=== PATIENT | male | born 1950 | race Caucasian/White ===

== ENCOUNTER 2019-01-10 19:11 | Inpatient (IN) | payer OTHER ==
[~2019-01-10] VITALS: Ht 170.2 cm; Wt 115.4 kg
[2019-01-10] MEDS ORDERED: NITROGLYCERIN SUBLINGUAL 0.4 MG BOTTLE OF 25. SL PRN (19:30)
[2019-01-10] MEDS ORDERED: IV NORMAL SALINE 1000ML BAG 1,000 ML IV SCH (19:30)
[2019-01-10 19:37] LABS: BASO # 0.1 x10^3/uL (0.0-0.2); BASO % 1 % (0-3); EOS # 0.3 x10^3/uL (0.0-0.7); EOS % 3 % (0-3); HEMATOCRIT 46.1 % (39.0-53.0); HEMOGLOBIN 15.4 g/dL (13.0-17.5); LYMPH # 2.7 x10^3/uL (1.0-4.8); LYMPH % 26 % (24-48); MEAN CORPUSCULAR HEMOGLOBIN 32 pg (25-35); MEAN CORPUSCULAR HGB CONC 34 g/dL (31-37); MEAN CORPUSCULAR VOLUME 94 fL (79-100); MONO # 0.6 x10^3/uL (0.0-1.1); MONO % 6 % (0-9); NEUT # 6.7 x10^3uL (1.8-7.7); NEUT % 65 % (31-73); PLATELET COUNT 122 x10^3/uL (140-400); RED BLOOD COUNT 4.89 x10^6/uL (4.30-5.70); RED CELL DISTRIBUTION WIDTH 13.8 % (11.5-14.5); WHITE BLOOD COUNT 10.4 x10^3/uL (4.0-11.0)
[2019-01-10 19:49] LABS: CALCIUM 8.9 mg/dL (8.5-10.1); CREATININE 1.2 mg/dL (0.7-1.3); GFR 60.6; POTASSIUM 3.9 mmol/L (3.5-5.1)
[2019-01-10 19:58] LABS: ALBUMIN 3.3 g/dL (3.4-5.0); ALBUMIN/GLOBULIN RATIO 0.9 (1.0-1.7); MAGNESIUM 1.6 mg/dL (1.8-2.4); TOTAL BILIRUBIN 0.7 mg/dL (0.2-1.0); TOTAL PROTEIN 6.9 g/dL (6.4-8.2)
[2019-01-10] MEDS ORDERED: ASPIRIN CHEWABLE 81 MG TABLET. PO ONE (20:00)
--- NOTE | 2019-01-10 20:23 | RAD ---
Indication:chest pain TECHNIQUE:Portable AP chest X-ray COMPARISON:12/27/2018 FINDINGS: Heart is normal in size. Mild patchy opacities seen in the lingula. Otherwise, lungs are clear. No pneumothorax or pleural effusion. Visualized bony thorax within normal limits. IMPRESSION: Stable mild patchy opacity in the lingula may be secondary to prominent epicardial fat pad or subsegmental atelectasis or pneumonia. Electronically signed by: Josiah Castillo DO (01/10/2019 8:20 PM) [facility]
--- NOTE | 2019-01-10 20:36 | PHYS DOC ---
Past Medical History Past Medical History: Bronchitis, High Cholesterol, Hypertension Alcohol Use: Occasionally Drug Use: None Adult General Chief Complaint Chief Complaint: CHEST PAIN HPI HPI Patient is a 68-year-old male who presents with complaint of left-sided pleuritic chest pain that started at about 3:00 this afternoon. Patient states that pain onset was while he was resting. He states that there is little bit of radiation up into the left shoulder area. He denies any nausea, vomiting or diaphoresis. Patient states the pain is worsened with deep breathing. Patient states that he does have a history of blood clots in the past and had been on blood thinners but that was about 15 years ago. Review of Systems Review of Systems Constitutional: Denies fever or chills [] Respiratory: Denies cough or shortness of breath [] Cardiovascular: No additional information not addressed in HPI [] GI: Denies abdominal pain, nausea, vomiting or diarrhea [] Musculoskeletal: Denies back pain or joint pain [] Integument: Denies rash or skin lesions [] Neurologic: Denies headache, focal weakness or sensory changes [] Endocrine: Denies polyuria or polydipsia [] All other systems were reviewed and found to be within normal limits, except as documented in this note. Current Medications Current Medications Current Medications Medications (Trade) Dose Ordered Sig/Radha Start Time Stop Time Status Last Admin Dose Admin Aspirin (Children'S Aspirin) 324 mg 1X ONCE 01/10/19 20:00 01/10/19 20:01 DC 01/10/19 19:52 324 MG Enoxaparin Sodium (Lovenox 120mg Syringe) 110 mg 1X ONCE 01/10/19 23:00 01/10/19 23:01 Info (CONTRAST GIVEN -- Rx MONITORING) 1 each PRN DAILY PRN 01/10/19 21:30 01/12/19 21:29 Iohexol (Omnipaque 350 Mg/ml) 90 ml 1X ONCE 01/10/19 21:30 01/10/19 21:31 DC 01/10/19 21:20 90 ML Nitroglycerin (Nitrostat) 0.4 mg PRN Q5MIN PRN 01/10/19 19:30 01/11/19 19:29 01/10/19 19:52 0.4 MG Sodium Chloride 1,000 ml @ 100 mls/hr Q10H 01/10/19 19:30 01/11/19 05:29 01/10/19 19:30 100 MLS/HR Allergies Allergies Allergies Coded Allergies Type Severity Reaction Last Updated Verified No Known Drug Allergies 07/03/15 No Physical Exam Physical Exam Constitutional: Well developed, well nourished, no acute distress, non-toxic appearance. [] HENT: Normocephalic, atraumatic, bilateral external ears normal, oropharynx moist, no oral exudates, nose normal. [] Eyes: PERRLA, EOMI, conjunctiva normal, no discharge. [] Neck: Normal range of motion, no tenderness, supple, no stridor. [] Cardiovascular:Heart rate regular rhythm, no murmur [] Lungs & Thorax: Bilateral breath sounds clear to auscultation [] Abdomen: Bowel sounds normal, soft, no tenderness, no masses, no pulsatile masses. [] Skin: Warm, dry, no erythema, no rash. [] Back: No tenderness, no CVA tenderness. [] Extremities: No tenderness, no cyanosis, no clubbing, ROM intact, no edema. [] Neurologic: Alert and oriented X 3, normal motor function, normal sensory function, no focal deficits noted. [] Psychologic: Affect normal, judgement normal, mood normal. [] Current Patient Data Vital Signs Vital Signs Date Time Temp Pulse Resp B/P (MAP) Pulse Ox O2 Delivery O2 Flow Rate FiO2 01/10/19 19:52 85 142/98 01/10/19 19:11 97.7 20 96 Room Air 97.7 Lab Values Laboratory Tests Test 01/10/19 19:20 White Blood Count 10.4 x10^3/uL (4.0-11.0) Red Blood Count 4.89 x10^6/uL (4.30-5.70) Hemoglobin 15.4 g/dL (13.0-17.5) Hematocrit 46.1 % (39.0-53.0) Mean Corpuscular Volume 94 fL (79-100) Mean Corpuscular Hemoglobin 32 pg (25-35) Mean Corpuscular Hemoglobin Concent 34 g/dL (31-37) Red Cell Distribution Width 13.8 % (11.5-14.5) Platelet Count 122 x10^3/uL (140-400) L Neutrophils (%) (Auto) 65 % (31-73) Lymphocytes (%) (Auto) 26 % (24-48) Monocytes (%) (Auto) 6 % (0-9) Eosinophils (%) (Auto) 3 % (0-3) Basophils (%) (Auto) 1 % (0-3) Neutrophils # (Auto) 6.7 x10^3uL (1.8-7.7) Lymphocytes # (Auto) 2.7 x10^3/uL (1.0-4.8) Monocytes # (Auto) 0.6 x10^3/uL (0.0-1.1) Eosinophils # (Auto) 0.3 x10^3/uL (0.0-0.7) Basophils # (Auto) 0.1 x10^3/uL (0.0-0.2) D-Dimer (Rekha) 2.42 ug/mlFEU (0.00-0.50) H Sodium Level 143 mmol/L (136-145) Potassium Level 3.9 mmol/L (3.5-5.1) Chloride Level 103 mmol/L (98-107) Carbon Dioxide Level 28 mmol/L (21-32) Anion Gap 12 (6-14) Blood Urea Nitrogen 13 mg/dL (8-26) Creatinine 1.2 mg/dL (0.7-1.3) Estimated GFR (Cockcroft-Gault) 60.6 BUN/Creatinine Ratio 11 (6-20) Glucose Level 101 mg/dL (70-99) H Calcium Level 8.9 mg/dL (8.5-10.1) Magnesium Level 1.6 mg/dL (1.8-2.4) L Total Bilirubin 0.7 mg/dL (0.2-1.0) Aspartate Amino Transferase (AST) 20 U/L (15-37) Alanine Aminotransferase (ALT) 40 U/L (16-63) Alkaline Phosphatase 92 U/L (46-116) Troponin I Quantitative < 0.017 ng/mL (0.000-0.055) JJ-Zau-H-Type Natriuretic Peptide 107 pg/mL (0-124) Total Protein 6.9 g/dL (6.4-8.2) Albumin 3.3 g/dL (3.4-5.0) L Albumin/Globulin Ratio 0.9 (1.0-1.7) L Lipase 111 U/L (73-393) Laboratory Tests 01/10/19 19:20 Laboratory Tests 01/10/19 19:20 EKG EKG [] Radiology/Procedures Radiology/Procedures [] Impressions: PROCEDURE: PORTABLE CHEST 1V Indication:chest pain TECHNIQUE:Portable AP chest X-ray COMPARISON:12/27/2018 FINDINGS: Heart is normal in size. Mild patchy opacities seen in the lingula. Otherwise, lungs are clear. No pneumothorax or pleural effusion. Visualized bony thorax within normal limits. IMPRESSION: Stable mild patchy opacity in the lingula may be secondary to prominent epicardial fat pad or subsegmental atelectasis or pneumonia. Electronically signed by: Josiah Castillo DO (01/10/2019 8:20 PM) [facility] PROCEDURE: CT ANGIOGRAPHY CHEST PQRS Compliance statement: One or more of the following individualized dose reduction techniques were utilized for this examination: 1. Automated exposure control. 2. Adjustment of the mA and/or kV according to patient size. 3. Use of iterative reconstruction technique. Indication:chest pain; Omni 350, 90ml-due to pt size TECHNIQUE: CT angiogram of the chest with IV contrast with multiplanar MIP reformats. COMPARISON:None FINDINGS: Diagnostic please study. There is a filling defect in the proximal segmental arteries supplying right lower lobe and left lower lobe. Heart is normal in size. No pericardial or right pleural effusion. Trace left effusion. Clear neck base. No enlarged axillary, mediastinal or hilar adenopathy. Visualized sections through the liver, spleen, gallbladder, pancreas, adrenals and kidneys within normal limits. Slightly atrophic right kidney. Central airways are patent. Mild consolidation is seen in the left lower lobe and in the lingula. No suspicious bony lesion. IMPRESSION: 1. Bilateral lower lobe segmental PE. 2. Mild consolidation in the left lower lobe may secondary to subsegmental atelectasis or pneumonia. Critical findings were identified on 01/10/2019 10:23 PM, read back and verified with Dr. Alvarez on 01/10/2019 10:[address] Josiah Castillo DO. Electronically signed by: Josiah Castilol DO (01/10/2019 10:29 PM) [facility] Course & Med Decision Making Course & Med Decision Making Pertinent Labs and Imaging studies reviewed. (See chart for details) [] Dragon Disclaimer Dragon Disclaimer This electronic medical record was generated, in whole or in part, using a voice recognition dictation system. Departure Departure Impression: Primary Impression: Pulmonary emboli Disposition: ADMITTED INPATIENT Admitting Physician: Kevin Lujan Condition: IMPROVED Referrals: TITO HODGES (PCP) Problem Qualifiers Primary Impression: Pulmonary emboli Pulmonary embolism type: unspecified Chronicity: acute Acute cor pulmonale presence: without acute cor pulmonale Qualified Codes: I26.99 - Other pulmonary embolism without acute cor pulmonale SARITA ALVAREZ Jr. DO Jan 10, 2019 20:36
[2019-01-10] MEDS ORDERED: CONTRAST GIVEN. MC PRN (21:30)
[2019-01-10] MEDS ORDERED: IOHEXOL 350 MG/ML 100 ML VIAL. IV ONE (21:30)
--- NOTE | 2019-01-10 22:32 | RAD ---
PQRS Compliance statement: One or more of the following individualized dose reduction techniques were utilized for this examination: 1. Automated exposure control. 2. Adjustment of the mA and/or kV according to patient size. 3. Use of iterative reconstruction technique. Indication:chest pain; Omni 350, 90ml-due to pt size TECHNIQUE: CT angiogram of the chest with IV contrast with multiplanar MIP reformats. COMPARISON:None FINDINGS: Diagnostic please study. There is a filling defect in the proximal segmental arteries supplying right lower lobe and left lower lobe. Heart is normal in size. No pericardial or right pleural effusion. Trace left effusion. Clear neck base. No enlarged axillary, mediastinal or hilar adenopathy. Visualized sections through the liver, spleen, gallbladder, pancreas, adrenals and kidneys within normal limits. Slightly atrophic right kidney. Central airways are patent. Mild consolidation is seen in the left lower lobe and in the lingula. No suspicious bony lesion. IMPRESSION: 1. Bilateral lower lobe segmental PE. 2. Mild consolidation in the left lower lobe may secondary to subsegmental atelectasis or pneumonia. Critical findings were identified on 01/10/2019 10:23 PM, read back and verified with Dr. Alvarez on 01/10/2019 10:[address] Josiah Castillo DO. Electronically signed by: Josiah Castillo DO (01/10/2019 10:29 PM) [facility]
[2019-01-10] MEDS ORDERED: ONDANSETRON PF 4 MG/2 ML VIAL. IV PRN (22:45)
[2019-01-10] MEDS ORDERED: MORPHINE SULFATE 4 MG/ML VIAL. IV PRN (22:45)
[2019-01-10] MEDS ORDERED: HEPARIN 25,000UTS/500ML PREMIX 500 ML IV PRN (22:45)
[2019-01-10] MEDS ORDERED: HEPARIN for IV BOLUS 10,000 UNIT/10 ML VIAL. IV ONE ×2 (23:00→23:15)
[2019-01-10] MEDS ORDERED: ANTI-COAG MONITOR BY PHARMACY. MC PRN (23:00)
[2019-01-10] MEDS: HEPARIN 25,000UTS/500ML PREMIX 500 ML IV PRN (23:05)
[2019-01-10] MEDS: ACETAMINOPHEN 325 MG TABLET. PO PRN (23:10)
[2019-01-11 02:06] VITALS: BP 148/89
--- NOTE | 2019-01-11 04:21 | NUR ---
PT ADMITTED TO ROOM 254 WITH CHEST PAIN AND PE. ASSESSMENT AND HISTORY COMPLETE. HEPARIN GTT INFUSING. PT DENIES PAIN AT THIS TIME. CALL LIGHT IN PLACE, EXPLAINED POC PT VERBALIZED UNDERSTANDING, WILL CONT TO MONITOR. PMRN
[2019-01-11 05:11] LABS: BASO # 0.1 x10^3/uL (0.0-0.2); BASO % 1 % (0-3); EOS # 0.2 x10^3/uL (0.0-0.7); EOS % 2 % (0-3); HEMOGLOBIN 14.3 g/dL (13.0-17.5); LYMPH # 2.4 x10^3/uL (1.0-4.8); LYMPH % 21 % (24-48); MEAN CORPUSCULAR HEMOGLOBIN 31 pg (25-35); MEAN CORPUSCULAR HGB CONC 33 g/dL (31-37); MEAN CORPUSCULAR VOLUME 94 fL (79-100); MONO # 0.5 x10^3/uL (0.0-1.1); MONO % 4 % (0-9); NEUT # 8.4 x10^3uL (1.8-7.7); NEUT % 73 % (31-73); PLATELET COUNT 103 x10^3/uL (140-400); RED BLOOD COUNT 4.59 x10^6/uL (4.30-5.70); RED CELL DISTRIBUTION WIDTH 13.9 % (11.5-14.5); WHITE BLOOD COUNT 11.6 x10^3/uL (4.0-11.0)
[2019-01-11 05:49] LABS: CALCIUM 8.7 mg/dL (8.5-10.1); CREATININE 1.1 mg/dL (0.7-1.3); POTASSIUM 3.7 mmol/L (3.5-5.1)
[2019-01-11 07:00] VITALS: BP 124/76
[2019-01-11] MEDS: ACETAMINOPHEN 325 MG TABLET. PO PRN ×2 (08:56→22:27)
[2019-01-11] MEDS ORDERED: MAGNESIUM SULFATE 1GM 100 ML IV ONE (09:00)
[2019-01-11] MEDS ORDERED: SILD100T PO (09:47)
[2019-01-11] MEDS ORDERED: OMEP40CA5 PO (09:47)
[2019-01-11] MEDS ORDERED: ATOR20TA58 PO (09:47)
[2019-01-11] MEDS ORDERED: AMLO5TAB10 PO (09:47)
[2019-01-11] MEDS ORDERED: ALLO300T PO (09:47)
--- NOTE | 2019-01-11 09:50 | PDOC2 ---
SD LOPEZ PNEUMATIC TUBE REPAIRER 01/11/19 0950: CARDIAC CONSULT DATE OF CONSULT Date of Consult DATE: 01/11/19 TIME: 09:44 REASON FOR CONSULT Reason for Consult: PE REFERRING PHYSICIAN Referring Physician: Dr. Alvarez SOURCE Source: Chart review, Patient HISTORY OF PRESENT ILLNESS HISTORY OF PRESENT ILLNESS This is a 68 yo male, with a history of DVT/PE, HTN, and HLP, who presented secondary to chest pain. Began around 3 pm yesterday. Located in his left chest and radiated to his left shoulder. Describes as constant stabbing pain. Worse with deep breathing. Associated with SOA. No dizziness, syncope, diaphoresis, palpitations, LE edema, or nausea/vomiting. Upon arrival, CTA notable for bilateral lower lobe segmental PE. Report having PE in [address] trip[address] LE US was reportedly notable for old DVT at that time. Was followed by pulmonology and treated with warfarin for about a year. PAST MEDICAL HISTORY Cardiovascular: HTN, Hyperlipidemia Pulmonary: Pulmonary embolus CENTRAL NERVOUS SYSTEM: Other (no pertinent hx) GI: GERD Heme/Onc: Other (DVT) Hepatobiliary: No pertinent hx Psych: No pertinent hx Musculoskeletal: Osteoarthritis Rheumatologic: Gout Infectious disease: No pertinent hx ENT: No pertinent hx Renal/: No pertinent hx Endocrine: Diabetes ("borderline") Dermatology: No pertinent hx PAST SURGICAL HISTORY Past Surgical History: Hernia Repair FAMILY HISTORY Family History: Diabetes, Heart Disease, Hypertension SOCIAL HISTORY Smoke: No ALCOHOL: rare Drugs: None Lives: with Family CURRENT MEDICATIONS CURRENT MEDICATIONS Current Medications Medications (Trade) Dose Ordered Sig/Radha Route PRN Reason Start Time Stop Time Status Last Admin Dose Admin Aspirin (Children'S Aspirin) 324 mg 1X ONCE PO 01/10/19 20:00 01/10/19 20:01 DC 01/10/19 19:52 Nitroglycerin (Nitrostat) 0.4 mg PRN Q5MIN PRN SL CP RATING > 10 01/10/19 19:30 01/11/19 19:29 01/10/19 19:52 Sodium Chloride 1,000 ml @ 100 mls/hr Q10H IV 01/10/19 19:30 01/11/19 05:29 DC 01/10/19 19:30 Iohexol (Omnipaque 350 Mg/ml) 90 ml 1X ONCE IV 01/10/19 21:30 01/10/19 21:31 DC 01/10/19 21:20 Acetaminophen (Tylenol) 650 mg PRN Q4HRS PRN PO FEVER 01/10/19 22:45 01/11/19 22:44 01/11/19 08:56 Info (Anti-Coagulation Monitoring By Pharmacy) 1 each PRN DAILY PRN MC SEE COMMENTS 01/10/19 23:00 01/11/19 02:05 Heparin Sodium (Porcine) (Heparin Sodium) 9,050 unit 1X ONCE IV 01/10/19 23:15 01/10/19 23:16 DC 01/10/19 23:06 Heparin Sodium/ Dextrose 500 ml @ 0 mls/hr CONT PRN IV SEE I/O RECORD 01/10/19 23:15 01/10/19 23:05 Magnesium Sulfate/ Dextrose 100 ml @ 100 mls/hr 1X ONCE IV 01/11/19 09:00 01/11/19 09:59 01/11/19 08:52 ALLERGIES ALLERGIES: Coded Allergies: No Known Drug Allergies (Unverified , 07/03/15) ROS Review of System 14 point ROS conducted with pertinent positives noted above in HPI. PHYSICAL EXAM General: Alert, Oriented X3, Cooperative, No acute distress HEENT: Atraumatic, Mucous membr. moist/pink Lungs: Clear to auscultation, Normal air movement Heart: Regular rate, Normal S1, Normal S2 Abdomen: Soft, No tenderness Extremities: No edema, Normal pulses Skin: No significant lesion Neuro: Normal speech, Sensation intact Psych/Mental Status: Mental status NL, Mood NL MUSCULOSKELETAL: Osteoarthritic changes both hands VITALS VITALS Vital Signs Date Time Temp Pulse Resp B/P (MAP) Pulse Ox O2 Delivery O2 Flow Rate FiO2 01/11/19 08:00 Room Air 01/11/19 07:00 97.5 86 16 124/76 (92) 97 97.5 LABS Lab: Laboratory Tests Test 01/10/19 19:20 01/11/19 04:00 01/11/19 04:50 01/11/19 05:00 White Blood Count 10.4 x10^3/uL (4.0-11.0) 11.6 x10^3/uL (4.0-11.0) Red Blood Count 4.89 x10^6/uL (4.30-5.70) 4.59 x10^6/uL (4.30-5.70) Hemoglobin 15.4 g/dL (13.0-17.5) 14.3 g/dL (13.0-17.5) Hematocrit 46.1 % (39.0-53.0) 43.0 % (39.0-53.0) Mean Corpuscular Volume 94 fL (79-100) 94 fL (79-100) Mean Corpuscular Hemoglobin 32 pg (25-35) 31 pg (25-35) Mean Corpuscular Hemoglobin Concent 34 g/dL (31-37) 33 g/dL (31-37) Red Cell Distribution Width 13.8 % (11.5-14.5) 13.9 % (11.5-14.5) Platelet Count 122 x10^3/uL (140-400) 103 x10^3/uL (140-400) Neutrophils (%) (Auto) 65 % (31-73) 73 % (31-73) Lymphocytes (%) (Auto) 26 % (24-48) 21 % (24-48) Monocytes (%) (Auto) 6 % (0-9) 4 % (0-9) Eosinophils (%) (Auto) 3 % (0-3) 2 % (0-3) Basophils (%) (Auto) 1 % (0-3) 1 % (0-3) Neutrophils # (Auto) 6.7 x10^3uL (1.8-7.7) 8.4 x10^3uL (1.8-7.7) Lymphocytes # (Auto) 2.7 x10^3/uL (1.0-4.8) 2.4 x10^3/uL (1.0-4.8) Monocytes # (Auto) 0.6 x10^3/uL (0.0-1.1) 0.5 x10^3/uL (0.0-1.1) Eosinophils # (Auto) 0.3 x10^3/uL (0.0-0.7) 0.2 x10^3/uL (0.0-0.7) Basophils # (Auto) 0.1 x10^3/uL (0.0-0.2) 0.1 x10^3/uL (0.0-0.2) D-Dimer (Rekha) 2.42 ug/mlFEU (0.00-0.50) Sodium Level 143 mmol/L (136-145) 143 mmol/L (136-145) Potassium Level 3.9 mmol/L (3.5-5.1) 3.7 mmol/L (3.5-5.1) Chloride Level 103 mmol/L (98-107) 106 mmol/L (98-107) Carbon Dioxide Level 28 mmol/L (21-32) 27 mmol/L (21-32) Anion Gap 12 (6-14) 10 (6-14) Blood Urea Nitrogen 13 mg/dL (8-26) 11 mg/dL (8-26) Creatinine 1.2 mg/dL (0.7-1.3) 1.1 mg/dL (0.7-1.3) Estimated GFR (Cockcroft-Gault) 60.6 67.0 BUN/Creatinine Ratio 11 (6-20) Glucose Level 101 mg/dL (70-99) 138 mg/dL (70-99) Calcium Level 8.9 mg/dL (8.5-10.1) 8.7 mg/dL (8.5-10.1) Magnesium Level 1.6 mg/dL (1.8-2.4) 1.7 mg/dL (1.8-2.4) Total Bilirubin 0.7 mg/dL (0.2-1.0) Aspartate Amino Transf (AST/SGOT) 20 U/L (15-37) Alanine Aminotransferase (ALT/SGPT) 40 U/L (16-63) Alkaline Phosphatase 92 U/L (46-116) Troponin I Quantitative < 0.017 ng/mL (0.000-0.055) < 0.017 ng/mL (0.000-0.055) KM-Qij-H-Type Natriuretic Peptide 107 pg/mL (0-124) Total Protein 6.9 g/dL (6.4-8.2) Albumin 3.3 g/dL (3.4-5.0) Albumin/Globulin Ratio 0.9 (1.0-1.7) Lipase 111 U/L (73-393) Heparin Anti-Xa Act, Unfractionated 0.91 IU/mL (0.30-0.70) ASSESSMENT/PLAN ASSESSMENT/PLAN 1. Chest pain, pleuritic. AMi ruled out. Secondary to acute PE 2. PE; bilateral lower lobe. On heparin gtt 3. Hypertension; controlled 4. Hyperlipidemia; statin 5. Hypomagnesemia; replaced Recommendations Anticoagulation Echocardiogram LE US to r/o DVT Resume home statin and antiHTN therapy. Follow pulm recommendations Given risk factors, consider outpatient stress test. HARITHA BLOOM MD 01/11/19 1826: CARDIAC CONSULT ASSESSMENT/PLAN ASSESSMENT/PLAN Patient seen and examined. Agree with above nurse practitioner note. 68-year-old man with recurrent PE with likely underlying hypercoagulable state. Will defer to primary and pulmonary for further evaluation Echocardiogram demonstrates minimally dilated right ventricle. He's currently denies any chest pain. We will repeat echocardiogram in 3 months and consider ischemic evaluation pending on symptoms. Supportive care. Okay to discharge from a cardiac standpoint. SD LOPEZ APRN Jan 11, 2019 09:50 HARITHA BLOOM MD Jan 11, 2019 18:26
[2019-01-11 11:00] VITALS: BP 136/80
--- NOTE | 2019-01-11 11:01 | EKG ---
[facility] [address] [place] [address] Test Date: 2019-01-10 Test Time: 19:15:17 Pat Name: ILIA HERNANDEZ Department: Room: 254 1 Gender: M Sales Correspondent: : 1950 Requested By: SARITA REINA Order Number: [id number] Reading MD: Luiz Gibson MD Measurements Intervals [place] Rate: 90 P: 51 MO: 162 QRS: 16 QRSD: 88 T: 30 QT: 364 QTc: 449 Interpretive Statements SINUS RHYTHM ATRIAL PREMATURE COMPLEX(ES) Electronically Signed On 01-11-2019 17:09:17 WINDOWS CONSULTANT by Luiz Gibson MD
[2019-01-11 11:21] LABS: CHOLESTEROL/HDL RATIO 2.7
--- NOTE | 2019-01-11 11:43 | HP ---
ADMIT DATE: 01/10/2019 CHIEF COMPLAINT: Shortness of breath and chest discomfort. HISTORY OF PRESENT ILLNESS: The patient is a pleasant 68-year-old male who has had a previous history of a pulmonary embolism 15 years ago. He presented to the ER this time with chest pain and was concerned he was having a cardiac event. He describes it as agonizing with associated shortness of breath, worse with moving. He tried taking some home meds, but that did not work. He states the pain is severe. While in the ER, we did a CAT scan showing he has bilateral pulmonary emboli. I have discussed the case with ER physician. We are admitting the patient, placed him on heparin and consulting Cardiology and Pulmonary. PAST MEDICAL HISTORY: Previous pulmonary embolism, GERD, DVT, gout, diabetes. ALLERGIES: None. FAMILY HISTORY: Diabetes. SOCIAL HISTORY: He is retired. He does not drink, smoke or take drugs. MEDICATIONS: He is on 5 including atorvastatin, Viagra, amlodipine, omeprazole, and, allopurinol. REVIEW OF SYSTEMS: GENERAL: No history of weight change, weakness or fevers. SKIN: No bruising, hair changes or rashes. EYES: No blurred, double or loss of vision. NOSE AND THROAT: No history of nosebleeds, hoarseness or sore throat. HEART: He complains of chest pain. LUNGS: Denies cough, hemoptysis, wheezing or shortness of breath. GASTROINTESTINAL: Denies changes in appetite, nausea, vomiting, diarrhea or constipation. GENITOURINARY: No history of frequency, urgency, hesitancy or nocturia. NEUROLOGIC: Denies history of numbness, tingling, tremor or weakness. PSYCHIATRIC: No history of panic, anxiety or depression. ENDOCRINE: No history of heat or cold intolerance, polyuria or polydipsia. EXTREMITIES: Denies muscle weakness, joint pain, pain on walking or stiffness. PHYSICAL EXAMINATION: VITAL SIGNS: Temperature is 97.5, pulse 80, respirations 18, blood pressure 124/76, O2 sat 97% on room air. GENERAL: He is alert, cooperative. His is present. HEART: Normal S1, S2. LUNGS: Clear to auscultation. ABDOMEN: Soft, positive bowel sounds, a little obese. EXTREMITIES: Trace edema. SKIN: No rashes. ENDOCRINE: No thyromegaly. LYMPHATICS: No cervical nodes. HEMATOPOIETIC: No bruising. PSYCHIATRIC: He is stable. LABORATORY DATA: Hematology is normal. Electrolytes are normal. Troponin is 0. CAT scan shows bilateral pulmonary emboli in the lower lobes, segmental. He also has a mild consolidation in the left lower lobe, which could be pneumonia. ASSESSMENT AND PLAN: Bilateral pulmonary emboli, recurrent. The patient is being admitted. We will consult Pulmonary and Cardiology. Start heparin drip, hope to convert to p.o. anticoagulation, home meds, frequent labs, cardiac monitoring, lipid panel, heparin protocol. Suspect he will need lifelong anticoagulation. LONG-TERM PROGNOSIS: Guarded. KATHARINA TURNER DO DR: DANIEL/devorah JOB#: [id number] / [id number]
[2019-01-11] MEDS: amLODIPine BESYLATE 5 MG TABLET PO SCH (12:11)
[2019-01-11] MEDS: HEPARIN 25,000UTS/500ML PREMIX 500 ML IV PRN (12:17)
--- NOTE | 2019-01-11 13:20 | NUR ---
SS following for discharge planning. SS reviewed pt chart. Pt is from home with spouse and currently on room air. No discharge needs noted at this time. SS will continue to follow for pending discharge needs.
--- NOTE | 2019-01-11 14:38 | PDOC ---
PULMONARY PROGRESS NOTES Vitals Vital Signs Date Time Temp Pulse Resp B/P (MAP) Pulse Ox O2 Delivery O2 Flow Rate FiO2 01/11/19 12:11 77 138/84 01/11/19 11:00 98.0 16 96 Room Air 98.0 Labs Laboratory Tests Test 01/10/19 19:20 01/11/19 04:00 01/11/19 04:50 01/11/19 05:00 White Blood Count 10.4 x10^3/uL (4.0-11.0) 11.6 x10^3/uL (4.0-11.0) Red Blood Count 4.89 x10^6/uL (4.30-5.70) 4.59 x10^6/uL (4.30-5.70) Hemoglobin 15.4 g/dL (13.0-17.5) 14.3 g/dL (13.0-17.5) Hematocrit 46.1 % (39.0-53.0) 43.0 % (39.0-53.0) Mean Corpuscular Volume 94 fL (79-100) 94 fL (79-100) Mean Corpuscular Hemoglobin 32 pg (25-35) 31 pg (25-35) Mean Corpuscular Hemoglobin Concent 34 g/dL (31-37) 33 g/dL (31-37) Red Cell Distribution Width 13.8 % (11.5-14.5) 13.9 % (11.5-14.5) Platelet Count 122 x10^3/uL (140-400) 103 x10^3/uL (140-400) Neutrophils (%) (Auto) 65 % (31-73) 73 % (31-73) Lymphocytes (%) (Auto) 26 % (24-48) 21 % (24-48) Monocytes (%) (Auto) 6 % (0-9) 4 % (0-9) Eosinophils (%) (Auto) 3 % (0-3) 2 % (0-3) Basophils (%) (Auto) 1 % (0-3) 1 % (0-3) Neutrophils # (Auto) 6.7 x10^3uL (1.8-7.7) 8.4 x10^3uL (1.8-7.7) Lymphocytes # (Auto) 2.7 x10^3/uL (1.0-4.8) 2.4 x10^3/uL (1.0-4.8) Monocytes # (Auto) 0.6 x10^3/uL (0.0-1.1) 0.5 x10^3/uL (0.0-1.1) Eosinophils # (Auto) 0.3 x10^3/uL (0.0-0.7) 0.2 x10^3/uL (0.0-0.7) Basophils # (Auto) 0.1 x10^3/uL (0.0-0.2) 0.1 x10^3/uL (0.0-0.2) D-Dimer (Rekha) 2.42 ug/mlFEU (0.00-0.50) Sodium Level 143 mmol/L (136-145) 143 mmol/L (136-145) Potassium Level 3.9 mmol/L (3.5-5.1) 3.7 mmol/L (3.5-5.1) Chloride Level 103 mmol/L (98-107) 106 mmol/L (98-107) Carbon Dioxide Level 28 mmol/L (21-32) 27 mmol/L (21-32) Anion Gap 12 (6-14) 10 (6-14) Blood Urea Nitrogen 13 mg/dL (8-26) 11 mg/dL (8-26) Creatinine 1.2 mg/dL (0.7-1.3) 1.1 mg/dL (0.7-1.3) Estimated GFR (Cockcroft-Gault) 60.6 67.0 BUN/Creatinine Ratio 11 (6-20) Glucose Level 101 mg/dL (70-99) 138 mg/dL (70-99) Calcium Level 8.9 mg/dL (8.5-10.1) 8.7 mg/dL (8.5-10.1) Magnesium Level 1.6 mg/dL (1.8-2.4) 1.7 mg/dL (1.8-2.4) Total Bilirubin 0.7 mg/dL (0.2-1.0) Aspartate Amino Transf (AST/SGOT) 20 U/L (15-37) Alanine Aminotransferase (ALT/SGPT) 40 U/L (16-63) Alkaline Phosphatase 92 U/L (46-116) Troponin I Quantitative < 0.017 ng/mL (0.000-0.055) < 0.017 ng/mL (0.000-0.055) GS-Jis-C-Type Natriuretic Peptide 107 pg/mL (0-124) Total Protein 6.9 g/dL (6.4-8.2) Albumin 3.3 g/dL (3.4-5.0) Albumin/Globulin Ratio 0.9 (1.0-1.7) Lipase 111 U/L (73-393) Heparin Anti-Xa Act, Unfractionated 0.91 IU/mL (0.30-0.70) Triglycerides Level 70 mg/dL (0-150) Cholesterol Level 109 mg/dL (0-200) LDL Cholesterol, Calculated 55 mg/dL (0-100) VLDL Cholesterol, Calculated 14 mg/dL (0-40) Non-HDL Cholesterol Calculated 69 mg/dL (0-129) HDL Cholesterol 40 mg/dL (40-60) Cholesterol/HDL Ratio 2.7 Test 01/11/19 11:55 Heparin Anti-Xa Act, Unfractionated 0.57 IU/mL (0.30-0.70) Laboratory Tests Test 01/10/19 19:20 01/11/19 04:00 01/11/19 04:50 01/11/19 05:00 White Blood Count 10.4 x10^3/uL (4.0-11.0) 11.6 x10^3/uL (4.0-11.0) Red Blood Count 4.89 x10^6/uL (4.30-5.70) 4.59 x10^6/uL (4.30-5.70) Hemoglobin 15.4 g/dL (13.0-17.5) 14.3 g/dL (13.0-17.5) Hematocrit 46.1 % (39.0-53.0) 43.0 % (39.0-53.0) Mean Corpuscular Volume 94 fL (79-100) 94 fL (79-100) Mean Corpuscular Hemoglobin 32 pg (25-35) 31 pg (25-35) Mean Corpuscular Hemoglobin Concent 34 g/dL (31-37) 33 g/dL (31-37) Red Cell Distribution Width 13.8 % (11.5-14.5) 13.9 % (11.5-14.5) Platelet Count 122 x10^3/uL (140-400) 103 x10^3/uL (140-400) Neutrophils (%) (Auto) 65 % (31-73) 73 % (31-73) Lymphocytes (%) (Auto) 26 % (24-48) 21 % (24-48) Monocytes (%) (Auto) 6 % (0-9) 4 % (0-9) Eosinophils (%) (Auto) 3 % (0-3) 2 % (0-3) Basophils (%) (Auto) 1 % (0-3) 1 % (0-3) Neutrophils # (Auto) 6.7 x10^3uL (1.8-7.7) 8.4 x10^3uL (1.8-7.7) Lymphocytes # (Auto) 2.7 x10^3/uL (1.0-4.8) 2.4 x10^3/uL (1.0-4.8) Monocytes # (Auto) 0.6 x10^3/uL (0.0-1.1) 0.5 x10^3/uL (0.0-1.1) Eosinophils # (Auto) 0.3 x10^3/uL (0.0-0.7) 0.2 x10^3/uL (0.0-0.7) Basophils # (Auto) 0.1 x10^3/uL (0.0-0.2) 0.1 x10^3/uL (0.0-0.2) D-Dimer (Rekha) 2.42 ug/mlFEU (0.00-0.50) Sodium Level 143 mmol/L (136-145) 143 mmol/L (136-145) Potassium Level 3.9 mmol/L (3.5-5.1) 3.7 mmol/L (3.5-5.1) Chloride Level 103 mmol/L (98-107) 106 mmol/L (98-107) Carbon Dioxide Level 28 mmol/L (21-32) 27 mmol/L (21-32) Anion Gap 12 (6-14) 10 (6-14) Blood Urea Nitrogen 13 mg/dL (8-26) 11 mg/dL (8-26) Creatinine 1.2 mg/dL (0.7-1.3) 1.1 mg/dL (0.7-1.3) Estimated GFR (Cockcroft-Gault) 60.6 67.0 BUN/Creatinine Ratio 11 (6-20) Glucose Level 101 mg/dL (70-99) 138 mg/dL (70-99) Calcium Level 8.9 mg/dL (8.5-10.1) 8.7 mg/dL (8.5-10.1) Magnesium Level 1.6 mg/dL (1.8-2.4) 1.7 mg/dL (1.8-2.4) Total Bilirubin 0.7 mg/dL (0.2-1.0) Aspartate Amino Transf (AST/SGOT) 20 U/L (15-37) Alanine Aminotransferase (ALT/SGPT) 40 U/L (16-63) Alkaline Phosphatase 92 U/L (46-116) Troponin I Quantitative < 0.017 ng/mL (0.000-0.055) < 0.017 ng/mL (0.000-0.055) NU-Iya-K-Type Natriuretic Peptide 107 pg/mL (0-124) Total Protein 6.9 g/dL (6.4-8.2) Albumin 3.3 g/dL (3.4-5.0) Albumin/Globulin Ratio 0.9 (1.0-1.7) Lipase 111 U/L (73-393) Heparin Anti-Xa Act, Unfractionated 0.91 IU/mL (0.30-0.70) Triglycerides Level 70 mg/dL (0-150) Cholesterol Level 109 mg/dL (0-200) LDL Cholesterol, Calculated 55 mg/dL (0-100) VLDL Cholesterol, Calculated 14 mg/dL (0-40) Non-HDL Cholesterol Calculated 69 mg/dL (0-129) HDL Cholesterol 40 mg/dL (40-60) Cholesterol/HDL Ratio 2.7 Test 01/11/19 11:55 Heparin Anti-Xa Act, Unfractionated 0.57 IU/mL (0.30-0.70) Medications Active Scripts Medications Dose Route/Sig Max Daily Dose Days Date Category Viagra (Sildenafil Citrate) 100 Mg Tablet 1 Tab PO PRN DAILY 01/11/19 Reported Atorvastatin Calcium 20 Mg Tablet 20 Mg PO HS 01/11/19 Reported Amlodipine Besylate 5 Mg Tablet 5 Mg PO DAILY 01/11/19 Reported Allopurinol 300 Mg Tablet 300 Mg PO DAILY 01/11/19 Reported Omeprazole 40 Mg Capsule.dr 40 Mg PO DAILY 01/11/19 Reported Impression . ACUTE PE WITH INFRACT PULMONARY CHEST PAIN SEC TO ABOVE CONTINUE THE SAME POSSIBLE D/C SOON ON ADVIDSON ORTIZ MD Jan 11, 2019 14:38
[2019-01-11 15:00] VITALS: BP 134/75
--- NOTE | 2019-01-11 16:24 | RAD ---
MR#: [id number] Date of Study: 01/11/2019 Ordering Physician: STEVEN WALTER, Referring Physician: YVONNE NOLAND Tech: Jodie Patterson RDMS RVT APPROVED REPORT Bilateral Lower Extremity Venous Study for DVT Patient Location: IN-PATIENT Indications Pulmonary Embolism Findings The bilateral lower extremity deep veins were evaluated for thrombus with color Doppler, spectral and grayscale images. On the right the grayscale images of the common femoral, superficial femoral and popliteal veins do n ot demonstrate any evidence of thrombus and these veins appear to be compressible. The below-knee vei ns were not well visualized but grossly appear to be compressible. Spectral imaging and color Doppler do not reveal any evidence of obstruction to flow with normal respirophasic variation above the knee . Below the knee there is spontaneous flow noted. On the left, the grayscale images of the common femoral, superficial femoral and popliteal veins do n ot demonstrate any evidence of thrombus and these veins appear to be compressible. The below-knee vei ns again were not well visualized but grossly appear to be compressible. Spectral imaging and color D oppler do not reveal any evidence of obstruction to flow with normal respirophasic variation above th e knee. The below-knee veins demonstrate spontaneous flow. Critical Notification Critical Value: No <Conclusion> Negative for DVT in the bilateral lower extremities. Technically difficult study Signed by : Luiz Gibson, Electronically Approved : 01/11/2019 16:23:46
--- NOTE | 2019-01-11 18:01 | CARD ---
MR#: [id number] Date of Study: 01/11/2019 Ordering Physician: STEVEN WALTER, Referring Physician: YVONNE NOLAND, Tech: Vandana Beth APPROVED REPORT EXAM: Two-dimensional and M-mode echocardiogram with Doppler and color Doppler. Other Information Quality : AverageHR: 81bpm Technically limited study due to body habitus. INDICATION Pulmonary Embolism RISK FACTORS Hypertension Hyperlipidemia 2D DIMENSIONS RVDd2.7 (2.9-3.5cm)Left Atrium(2D)3.8 (1.6-4.0cm) IVSd1.4 (0.7-1.1cm)Aortic Root(2D)3.1 (2.0-3.7cm) LVDd5.1 (3.9-5.9cm)LVOT Diameter2.3 (1.8-2.4cm) PWd1.4 (0.7-1.1cm)LVDs2.8 (2.5-4.0cm) FS (%) 44.7 %SV92.1 ml LVEF(%)75.7 (>50%) Aortic Valve AoV Peak Kenny.126.3cm/sAoV VTI24.6cm AO Peak GR.6.4mmHgLVOT VTI 15.82cm AO Mean GR.4mmHg Mitral Valve MV E Vmgeirjd11.3cm/sMV DECEL IIDR956et MV A Yappvpvi02.5cm/sE/A Ratio1.2 TDI Lateral E' P. V9.54cm/sMedial E' P. V6.36cm/s E/Lateral E'6.7E/Medial E'10.1 Tricuspid Valve TR P. Erysvzzk182rn/sRAP OJGDRPWC4unPu TR Peak Gr.46wiEcWJLO30bkWf Pulmonary Vein S1 Zbkutulo69.2cm/sS2 Yqhqprnq67.38cm/s D2 Xvjizaxo32.4cm/sPVa mpvqnhhp87klxg LEFT VENTRICLE The left ventricle is normal size. There is moderate concentric left ventricular hypertrophy. The lef t ventricular systolic function is normal and the ejection fraction is within normal range. The Eject ion Fraction is 50-55%. There is grossly normal LV segmental wall motion. Transmitral Doppler flow pa ttern is Grade II-pseudonormal filling dynamics. RIGHT VENTRICLE The right ventricle is borderline dilated. There is normal right ventricular wall thickness. The righ t ventricular systolic function is normal. ATRIA The left atrium size is normal. The right atrium size is normal. The interatrial septum is intact wit h no evidence for an atrial septal defect or patent foramen ovale as noted on 2-D or Doppler imaging. AORTIC VALVE The aortic valve is normal in structure and function. Doppler and Color Flow revealed no significant aortic regurgitation. There is no significant aortic valvular stenosis. MITRAL VALVE The mitral valve is normal in structure and function. There is no evidence of mitral valve prolapse. There is no mitral valve stenosis. Doppler and Color Flow revealed no mitral valve regurgitation note d. TRICUSPID VALVE The tricuspid valve is normal in structure and function. Doppler and Color Flow revealed trace tricus pid regurgitation with an estimated PAP of 30 mmHg. There is no tricuspid valve stenosis. PULMONIC VALVE The pulmonic valve is not well visualized. Doppler and Color Flow revealed no pulmonic valvular regur gitation. GREAT VESSELS The aortic root is normal in size. The IVC was not visualized. PERICARDIAL EFFUSION There is no evidence of significant pericardial effusion. Critical Notification Critical Value: No <Conclusion> The left ventricular systolic function is normal and the ejection fraction is within normal range. Th e Ejection Fraction is 50-55%. There is grossly normal LV segmental wall motion. The right ventricle is borderline dilated. Signed by : Luiz Gibson, Electronically Approved : 01/11/2019 18:00:39
[2019-01-11 18:56] VITALS: BP 140/91
[2019-01-11] MEDS ORDERED: ATORVASTATIN CALCIUM 20 MG TABLET PO SCH (21:00)
[2019-01-11 22:24] VITALS: BP 127/83
[2019-01-12 02:38] VITALS: BP 156/82
[2019-01-12] MEDS: HEPARIN 25,000UTS/500ML PREMIX 500 ML IV PRN (06:14)
[2019-01-12 06:27] LABS: BASO % 1 % (0-3); EOS # 0.3 x10^3/uL (0.0-0.7); EOS % 3 % (0-3); HEMOGLOBIN 15.9 g/dL (13.0-17.5); LYMPH # 2.6 x10^3/uL (1.0-4.8); LYMPH % 31 % (24-48); MEAN CORPUSCULAR HEMOGLOBIN 32 pg (25-35); MEAN CORPUSCULAR HGB CONC 34 g/dL (31-37); MEAN CORPUSCULAR VOLUME 95 fL (79-100); MONO # 0.5 x10^3/uL (0.0-1.1); MONO % 6 % (0-9); NEUT # 4.8 x10^3uL (1.8-7.7); NEUT % 59 % (31-73); PLATELET COUNT 117 x10^3/uL (140-400); RED BLOOD COUNT 4.96 x10^6/uL (4.30-5.70); RED CELL DISTRIBUTION WIDTH 14.2 % (11.5-14.5); WHITE BLOOD COUNT 8.2 x10^3/uL (4.0-11.0)
[2019-01-12 06:51] LABS: ALBUMIN 2.9 g/dL (3.4-5.0); ALBUMIN/GLOBULIN RATIO 0.8 (1.0-1.7); CALCIUM 9.1 mg/dL (8.5-10.1); CREATININE 1.1 mg/dL (0.7-1.3); POTASSIUM 4.1 mmol/L (3.5-5.1); TOTAL BILIRUBIN 0.8 mg/dL (0.2-1.0); TOTAL PROTEIN 6.7 g/dL (6.4-8.2)
[2019-01-12 07:00] VITALS: BP 142/87
--- NOTE | 2019-01-12 08:29 | PDOC ---
PROGRESS NOTES Chief Complaint Chief Complaint CC: SOA, chest discomfort Bilateral PE, Hx of previous PE HTN HLD GERD DVT Gout DM History of Present Illness History of Present Illness Pt is a 68 y/o male who presented to the ED with CP and SOA. Found to have bilateral PE on workup. Currently on heparin drip. Today he was seen and examined in his room. He is awake, alert and in NAD. He is currently not in any pain and feels better. He knows he will be on a blood thinner for life. He is ready to leave the hospital. DW his RN. Vitals Vitals Vital Signs Date Time Temp Pulse Resp B/P (MAP) Pulse Ox O2 Delivery O2 Flow Rate FiO2 01/12/19 07:00 97.6 77 18 142/87 (105) 93 Room Air 97.6 Physical Exam General: Alert, Oriented X3, Cooperative, No acute distress Heart: Regular rate, Normal S1, Normal S2, No murmurs Lungs: Clear, Other (no wheezing or crackles) Abdomen: Soft, No tenderness Extremities: No edema, Normal pulses Skin: No significant lesion Labs LABS Laboratory Tests Test 01/11/19 11:55 01/11/19 18:05 01/12/19 06:00 Heparin Anti-Xa Act, Unfractionated 0.57 IU/mL (0.30-0.70) 0.57 IU/mL (0.30-0.70) 0.59 IU/mL (0.30-0.70) White Blood Count 8.2 x10^3/uL (4.0-11.0) Red Blood Count 4.96 x10^6/uL (4.30-5.70) Hemoglobin 15.9 g/dL (13.0-17.5) Hematocrit 47.0 % (39.0-53.0) Mean Corpuscular Volume 95 fL (79-100) Mean Corpuscular Hemoglobin 32 pg (25-35) Mean Corpuscular Hemoglobin Concent 34 g/dL (31-37) Red Cell Distribution Width 14.2 % (11.5-14.5) Platelet Count 117 x10^3/uL (140-400) Neutrophils (%) (Auto) 59 % (31-73) Lymphocytes (%) (Auto) 31 % (24-48) Monocytes (%) (Auto) 6 % (0-9) Eosinophils (%) (Auto) 3 % (0-3) Basophils (%) (Auto) 1 % (0-3) Neutrophils # (Auto) 4.8 x10^3uL (1.8-7.7) Lymphocytes # (Auto) 2.6 x10^3/uL (1.0-4.8) Monocytes # (Auto) 0.5 x10^3/uL (0.0-1.1) Eosinophils # (Auto) 0.3 x10^3/uL (0.0-0.7) Basophils # (Auto) 0.0 x10^3/uL (0.0-0.2) Sodium Level 140 mmol/L (136-145) Potassium Level 4.1 mmol/L (3.5-5.1) Chloride Level 105 mmol/L (98-107) Carbon Dioxide Level 26 mmol/L (21-32) Anion Gap 9 (6-14) Blood Urea Nitrogen 9 mg/dL (8-26) Creatinine 1.1 mg/dL (0.7-1.3) Estimated GFR (Cockcroft-Gault) 67.0 BUN/Creatinine Ratio 8 (6-20) Glucose Level 134 mg/dL (70-99) Calcium Level 9.1 mg/dL (8.5-10.1) Total Bilirubin 0.8 mg/dL (0.2-1.0) Aspartate Amino Transf (AST/SGOT) 19 U/L (15-37) Alanine Aminotransferase (ALT/SGPT) 31 U/L (16-63) Alkaline Phosphatase 93 U/L (46-116) Total Protein 6.7 g/dL (6.4-8.2) Albumin 2.9 g/dL (3.4-5.0) Albumin/Globulin Ratio 0.8 (1.0-1.7) Review of Systems Review of Systems Gen: denies fever, chills Heart: denies CP, palpitation Lung: denies cough, SOA Abd: denies N/V/D Assessment and Plan Assessmemt and Plan Assessment: CC: SOA, chest discomfort Bilateral PE, Hx of previous PE HTN HLD GERD DVT Gout DM Plan: Heparin drip with routine lab checks Hope to change to eliquis at D/C Cardiac monitoring Follow daily labs PT/OT Home meds Appreciate subspecialist input Hope to D/C today is okay by subspecialist Comment Review of Relevant I have reviewed the following items sonal (where applicable) has been applied. Labs Laboratory Tests Test 01/10/19 19:20 01/11/19 04:00 01/11/19 04:50 01/11/19 05:00 White Blood Count 10.4 x10^3/uL (4.0-11.0) 11.6 x10^3/uL (4.0-11.0) Red Blood Count 4.89 x10^6/uL (4.30-5.70) 4.59 x10^6/uL (4.30-5.70) Hemoglobin 15.4 g/dL (13.0-17.5) 14.3 g/dL (13.0-17.5) Hematocrit 46.1 % (39.0-53.0) 43.0 % (39.0-53.0) Mean Corpuscular Volume 94 fL (79-100) 94 fL (79-100) Mean Corpuscular Hemoglobin 32 pg (25-35) 31 pg (25-35) Mean Corpuscular Hemoglobin Concent 34 g/dL (31-37) 33 g/dL (31-37) Red Cell Distribution Width 13.8 % (11.5-14.5) 13.9 % (11.5-14.5) Platelet Count 122 x10^3/uL (140-400) 103 x10^3/uL (140-400) Neutrophils (%) (Auto) 65 % (31-73) 73 % (31-73) Lymphocytes (%) (Auto) 26 % (24-48) 21 % (24-48) Monocytes (%) (Auto) 6 % (0-9) 4 % (0-9) Eosinophils (%) (Auto) 3 % (0-3) 2 % (0-3) Basophils (%) (Auto) 1 % (0-3) 1 % (0-3) Neutrophils # (Auto) 6.7 x10^3uL (1.8-7.7) 8.4 x10^3uL (1.8-7.7) Lymphocytes # (Auto) 2.7 x10^3/uL (1.0-4.8) 2.4 x10^3/uL (1.0-4.8) Monocytes # (Auto) 0.6 x10^3/uL (0.0-1.1) 0.5 x10^3/uL (0.0-1.1) Eosinophils # (Auto) 0.3 x10^3/uL (0.0-0.7) 0.2 x10^3/uL (0.0-0.7) Basophils # (Auto) 0.1 x10^3/uL (0.0-0.2) 0.1 x10^3/uL (0.0-0.2) D-Dimer (Rekha) 2.42 ug/mlFEU (0.00-0.50) Sodium Level 143 mmol/L (136-145) 143 mmol/L (136-145) Potassium Level 3.9 mmol/L (3.5-5.1) 3.7 mmol/L (3.5-5.1) Chloride Level 103 mmol/L (98-107) 106 mmol/L (98-107) Carbon Dioxide Level 28 mmol/L (21-32) 27 mmol/L (21-32) Anion Gap 12 (6-14) 10 (6-14) Blood Urea Nitrogen 13 mg/dL (8-26) 11 mg/dL (8-26) Creatinine 1.2 mg/dL (0.7-1.3) 1.1 mg/dL (0.7-1.3) Estimated GFR (Cockcroft-Gault) 60.6 67.0 BUN/Creatinine Ratio 11 (6-20) Glucose Level 101 mg/dL (70-99) 138 mg/dL (70-99) Calcium Level 8.9 mg/dL (8.5-10.1) 8.7 mg/dL (8.5-10.1) Magnesium Level 1.6 mg/dL (1.8-2.4) 1.7 mg/dL (1.8-2.4) Total Bilirubin 0.7 mg/dL (0.2-1.0) Aspartate Amino Transf (AST/SGOT) 20 U/L (15-37) Alanine Aminotransferase (ALT/SGPT) 40 U/L (16-63) Alkaline Phosphatase 92 U/L (46-116) Troponin I Quantitative < 0.017 ng/mL (0.000-0.055) < 0.017 ng/mL (0.000-0.055) AQ-Rcc-C-Type Natriuretic Peptide 107 pg/mL (0-124) Total Protein 6.9 g/dL (6.4-8.2) Albumin 3.3 g/dL (3.4-5.0) Albumin/Globulin Ratio 0.9 (1.0-1.7) Lipase 111 U/L (73-393) Heparin Anti-Xa Act, Unfractionated 0.91 IU/mL (0.30-0.70) Triglycerides Level 70 mg/dL (0-150) Cholesterol Level 109 mg/dL (0-200) LDL Cholesterol, Calculated 55 mg/dL (0-100) VLDL Cholesterol, Calculated 14 mg/dL (0-40) Non-HDL Cholesterol Calculated 69 mg/dL (0-129) HDL Cholesterol 40 mg/dL (40-60) Cholesterol/HDL Ratio 2.7 Test 01/11/19 11:55 01/11/19 18:05 01/12/19 06:00 Heparin Anti-Xa Act, Unfractionated 0.57 IU/mL (0.30-0.70) 0.57 IU/mL (0.30-0.70) 0.59 IU/mL (0.30-0.70) White Blood Count 8.2 x10^3/uL (4.0-11.0) Red Blood Count 4.96 x10^6/uL (4.30-5.70) Hemoglobin 15.9 g/dL (13.0-17.5) Hematocrit 47.0 % (39.0-53.0) Mean Corpuscular Volume 95 fL (79-100) Mean Corpuscular Hemoglobin 32 pg (25-35) Mean Corpuscular Hemoglobin Concent 34 g/dL (31-37) Red Cell Distribution Width 14.2 % (11.5-14.5) Platelet Count 117 x10^3/uL (140-400) Neutrophils (%) (Auto) 59 % (31-73) Lymphocytes (%) (Auto) 31 % (24-48) Monocytes (%) (Auto) 6 % (0-9) Eosinophils (%) (Auto) 3 % (0-3) Basophils (%) (Auto) 1 % (0-3) Neutrophils # (Auto) 4.8 x10^3uL (1.8-7.7) Lymphocytes # (Auto) 2.6 x10^3/uL (1.0-4.8) Monocytes # (Auto) 0.5 x10^3/uL (0.0-1.1) Eosinophils # (Auto) 0.3 x10^3/uL (0.0-0.7) Basophils # (Auto) 0.0 x10^3/uL (0.0-0.2) Sodium Level 140 mmol/L (136-145) Potassium Level 4.1 mmol/L (3.5-5.1) Chloride Level 105 mmol/L (98-107) Carbon Dioxide Level 26 mmol/L (21-32) Anion Gap 9 (6-14) Blood Urea Nitrogen 9 mg/dL (8-26) Creatinine 1.1 mg/dL (0.7-1.3) Estimated GFR (Cockcroft-Gault) 67.0 BUN/Creatinine Ratio 8 (6-20) Glucose Level 134 mg/dL (70-99) Calcium Level 9.1 mg/dL (8.5-10.1) Total Bilirubin 0.8 mg/dL (0.2-1.0) Aspartate Amino Transf (AST/SGOT) 19 U/L (15-37) Alanine Aminotransferase (ALT/SGPT) 31 U/L (16-63) Alkaline Phosphatase 93 U/L (46-116) Total Protein 6.7 g/dL (6.4-8.2) Albumin 2.9 g/dL (3.4-5.0) Albumin/Globulin Ratio 0.8 (1.0-1.7) Laboratory Tests Test 01/11/19 11:55 01/11/19 18:05 01/12/19 06:00 Heparin Anti-Xa Act, Unfractionated 0.57 IU/mL (0.30-0.70) 0.57 IU/mL (0.30-0.70) 0.59 IU/mL (0.30-0.70) White Blood Count 8.2 x10^3/uL (4.0-11.0) Red Blood Count 4.96 x10^6/uL (4.30-5.70) Hemoglobin 15.9 g/dL (13.0-17.5) Hematocrit 47.0 % (39.0-53.0) Mean Corpuscular Volume 95 fL (79-100) Mean Corpuscular Hemoglobin 32 pg (25-35) Mean Corpuscular Hemoglobin Concent 34 g/dL (31-37) Red Cell Distribution Width 14.2 % (11.5-14.5) Platelet Count 117 x10^3/uL (140-400) Neutrophils (%) (Auto) 59 % (31-73) Lymphocytes (%) (Auto) 31 % (24-48) Monocytes (%) (Auto) 6 % (0-9) Eosinophils (%) (Auto) 3 % (0-3) Basophils (%) (Auto) 1 % (0-3) Neutrophils # (Auto) 4.8 x10^3uL (1.8-7.7) Lymphocytes # (Auto) 2.6 x10^3/uL (1.0-4.8) Monocytes # (Auto) 0.5 x10^3/uL (0.0-1.1) Eosinophils # (Auto) 0.3 x10^3/uL (0.0-0.7) Basophils # (Auto) 0.0 x10^3/uL (0.0-0.2) Sodium Level 140 mmol/L (136-145) Potassium Level 4.1 mmol/L (3.5-5.1) Chloride Level 105 mmol/L (98-107) Carbon Dioxide Level 26 mmol/L (21-32) Anion Gap 9 (6-14) Blood Urea Nitrogen 9 mg/dL (8-26) Creatinine 1.1 mg/dL (0.7-1.3) Estimated GFR (Cockcroft-Gault) 67.0 BUN/Creatinine Ratio 8 (6-20) Glucose Level 134 mg/dL (70-99) Calcium Level 9.1 mg/dL (8.5-10.1) Total Bilirubin 0.8 mg/dL (0.2-1.0) Aspartate Amino Transf (AST/SGOT) 19 U/L (15-37) Alanine Aminotransferase (ALT/SGPT) 31 U/L (16-63) Alkaline Phosphatase 93 U/L (46-116) Total Protein 6.7 g/dL (6.4-8.2) Albumin 2.9 g/dL (3.4-5.0) Albumin/Globulin Ratio 0.8 (1.0-1.7) Medications Current Medications Aspirin (Children'S Aspirin) 324 mg 1X ONCE PO Last administered on 01/10/19at 19:52; Start 01/10/19 at 20:00; Stop 01/10/19 at 20:01; Status DC Nitroglycerin (Nitrostat) 0.4 mg PRN Q5MIN PRN SL CP RATING > 1/10 Last administered on 01/10/19at 19:52; Start 01/10/19 at 19:30; Stop 01/11/19 at 19:29 ; Status DC Sodium Chloride 1,000 ml @ 100 mls/hr Q10H IV Last administered on 01/10/19at 19:30; Start 01/10/19 at 19:30; Stop 01/11/19 at 05:29; Status DC Iohexol (Omnipaque 350 Mg/ml) 90 ml 1X ONCE IV Last administered on 01/10/19at 21:20; Start 01/10/19 at 21:30; Stop 01/10/19 at 21:31; Status DC Info (CONTRAST GIVEN -- Rx MONITORING) 1 each PRN DAILY PRN MC SEE COMMENTS; Start 01/10/19 at 21:30; Stop 01/12/19 at 21:29 Enoxaparin Sodium (Lovenox 120mg Syringe) 110 mg 1X ONCE SQ ; Start 01/10/19 at 23:00; Stop 01/10/19 at 23:00; Status DC Heparin Sodium (Porcine) (Heparin Sodium) 5,000 unit 1X ONCE IV ; Start at 23:00; Stop 01/10/19 at 23:01; Status Cancel Heparin Sodium/ Dextrose 500 ml @ 26 mls/hr CONT PRN IV SEE I/O RECORD; Start 01/10/19 at 22:45; Status Cancel Ondansetron HCl (Zofran) 4 mg PRN Q8HRS PRN IV NAUSEA/VOMITING 1ST CHOICE; Start 01/10/19 at 22:45; Stop 01/11/19 at 22:44; Status DC Morphine Sulfate (Morphine Sulfate) 4 mg PRN Q2HR PRN IV SEVERE PAIN; Start at 22:45; Stop 01/11/19 at 22:44; Status DC Acetaminophen (Tylenol) 650 mg PRN Q4HRS PRN PO FEVER Last administered on at 22:27; Start 01/10/19 at 22:45; Stop 01/11/19 at 22:44; Status DC Info (Anti-Coagulation Monitoring By Pharmacy) 1 each PRN DAILY PRN MC SEE COMMENTS Last administered on 01/11/19at 02:05; Start 01/10/19 at 23:00 Heparin Sodium (Porcine) (Heparin Sodium) 9,050 unit 1X ONCE IV Last administered on 01/10/19at 23:06; Start 01/10/19 at 23:15; Stop 01/10/19 at 23:16 ; Status DC Heparin Sodium/ Dextrose 500 ml @ 0 mls/hr CONT PRN IV SEE I/O RECORD Last administered on 01/12/19at 06:14; Start 01/10/19 at 23:15 Magnesium Sulfate/ Dextrose 100 ml @ 100 mls/hr 1X ONCE IV Last administered on 01/11/19at 08:52; Start 01/11/19 at 09:00; Stop 01/11/19 at 09:59; Status DC Amlodipine Besylate (Norvasc) 5 mg DAILY PO Last administered on 01/11/19at 12:11 ; Start 01/11/19 at 10:30 Atorvastatin Calcium (Lipitor) 20 mg HS PO Last administered on 01/11/19at 20:33 ; Start 01/11/19 at 21:00 Active Scripts Active Reported Viagra (Sildenafil Citrate) 100 Mg Tablet 1 Tab PO PRN DAILY Atorvastatin Calcium 20 Mg Tablet 20 Mg PO HS Amlodipine Besylate 5 Mg Tablet 5 Mg PO DAILY Allopurinol 300 Mg Tablet 300 Mg PO DAILY Omeprazole 40 Mg Capsule.dr 40 Mg PO DAILY Vitals/I & O Vital Sign - Last 24 Hours 01/11/19 01/11/19 01/11/19 01/11/19 11:00 12:11 15:00 18:56 Temp 98.0 98.0 97.9 98.0 98.0 97.9 Pulse 77 77 86 95 Resp 16 16 B/P (MAP) 136/80 (98) 138/84 134/75 (94) 140/91 (107) Pulse Ox 96 94 97 O2 Delivery Room Air Room Air 3/12/0101/11/19 01/12/19 01/12/19 19:31 22:24 02:38 07:00 Temp 98.0 97.7 97.6 98.0 97.7 97.6 Pulse 90 82 77 Resp 18 18 18 B/P (MAP) 127/83 (98) 156/82 (106) 142/87 (105) Pulse Ox 97 95 93 O2 Delivery Room Air Room Air Room Air Room Air Intake and Output 01/11/19 01/11/19 01/12/19 15:00 23:00 07:00 Intake Total 0 ml Balance 0 ml KATHARINA TURNER III DO Jan 12, 2019 08:29
[2019-01-12] MEDS: amLODIPine BESYLATE 5 MG TABLET PO SCH (08:46)
--- NOTE | 2019-01-12 09:25 | CONS ---
DATE OF CONSULTATION: 01/11/2019 ATTENDING PHYSICIAN: Ayana Murphy. REASON FOR CONSULTATION: The patient is seen in pulmonary consultation at the request of Dr. Murphy for bilateral PE. HISTORY OF PRESENT ILLNESS: The patient is a 68-year-old with a prior history of DVT, was last seen in my office in 2004. He was treated for DVT, which is related to immobilization. He was in a long car ride that was his first time that he had a DVT and PE, was treated and taken off Coumadin. The patient now presents with increasing left-sided chest discomfort, pleuritic in nature. He thought he was having a heart attack as a consequence, he presented to the Emergency Department. He denies any hemoptysis. No recent trauma to his legs. He has not been traveling. He denies any acute onset of shortness of breath with near syncopal episode and pleurisy. He was evaluated in the Emergency Room, a D-dimer was elevated 2.42. His white count was normal. Hemoglobin and hematocrit were noted. He underwent chest x-ray, which showed some opacity in the lingula. He subsequently underwent a CT angiogram. I reviewed the CT, there is bilateral pulmonary emboli. There is an infiltrate and mild consolidation on the left. This could be related to pulmonary infarct. PAST MEDICAL HISTORY: 1. DVT, PE secondary to travel back in 2004. The patient treated with Coumadin, then taken off Coumadin. 2. Hyperlipidemia. 3. Hypertension. 4. Obesity. PAST SURGICAL HISTORY: No recent major surgeries. SOCIAL HISTORY: Occasional use of alcohol. FAMILY HISTORY: Thrombophilia. Apparently sister has multiple factors that led to hypercoagulable state. REVIEW OF SYSTEMS: CONSTITUTIONAL: No fever or chills. EYES: No change in visual acuity. HEENT: No nasal congestion or sore throat. PULMONARY: As indicated above. CARDIOVASCULAR: As indicated above. GASTROINTESTINAL: No nausea, vomiting, diarrhea. GENITOURINARY: No dysuria or frequency. MUSCULOSKELETAL: No localized muscle aches or joint pain. SKIN: No new skin rashes. NEUROLOGIC: No headaches, diplopia or blurred vision. CURRENT MEDICATION: List was reviewed. ALLERGIES: No known drug allergies. PHYSICAL EXAMINATION: GENERAL: The patient was in no respiratory distress. VITAL SIGNS: Tachycardic, room air saturation 96%. HEENT: Eyes, the sclerae were nonicteric. NECK: Jugular venous distention was not elevated. No lymphadenopathy. CHEST: Full expansion. LUNGS: Adequate airway flow with no wheezes. CARDIOVASCULAR: Regular rate and rhythm with S1, S2, no S3. ABDOMEN: Soft, nontender, nondistended. EXTREMITIES: No clubbing, cyanosis or edema. NEUROLOGIC: The patient was awake, alert, following commands. A detailed neuro exam was not performed. LABORATORY DATA AND IMAGING STUDIES: As indicated above. IMPRESSION: 1. Acute bilateral pulmonary embolism, this is a second event in the patient's life span. This is unprovoked, will require lifetime anticoagulation. 2. Prior history of deep venous thrombosis and pulmonary embolism secondary to travel in 2004. 3. Family history of thrombophilia. 4. Hyperlipidemia. 5. Hypertension. 6. Morbid obesity. 7. Left-sided chest discomfort secondary to above. 8. Infiltrate consolidation on CT, suspect pulmonary infarct, doubt pneumonia. PLAN: 1. Ultrasound of the lower extremities pending. 2. Continue anticoagulation. 3. Possible discharge in the a.m. on Eliquis. Lifetime anticoagulation will be required. 4. Follow cardiology input. I do appreciate the privilege in sharing in the patient's care. DAVIDSON DUNN MD DR: EDUARD/devorah JOB#: [id number] / [id number]
[2019-01-12 11:00] VITALS: BP 146/73
[2019-01-12] MEDS ORDERED: APIX5TAB PO ×2 (13:39→13:40)
[2019-01-12] MEDS ORDERED: APIXABAN 5 MG TABLET. PO SCH (14:00)
--- NOTE | 2019-01-12 14:12 | NUR ---
Discharge Note: ILIA HERNANDEZ Discharge instructions and discharge home medications reviewed with Patient and a copy given. All questions have been answered and understanding verbalized.
--- NOTE | 2019-01-12 14:13 | DS ---
DATE OF DISCHARGE: 01/12/2019 ADMISSION DIAGNOSES: Bilateral pulmonary emboli and chest pain. DISCHARGE DIAGNOSES: Resolving pulmonary emboli, now on chronic anticoagulation; previous pulmonary embolism; previous deep vein thrombosis (he did not have any deep vein thromboses on this admit); gout; diabetes and gastroesophageal reflux disease. HOSPITAL COURSE: The patient is a pleasant middle-aged male, who presented with chest pain. While in the ER, we scanned his chest. He had bilateral pulmonary emboli. He was admitted. We did consult Cardiology and Pulmonary. We placed him on heparin drip. We are changing him over to Eliquis today. PHYSICAL EXAMINATION: I saw and examined him this morning. HEART: Tones were normal. LUNGS: Clear. ABDOMEN: Soft. EXTREMITIES: No edema. We plan to discharge with close outpatient followup. DISPOSITION: Home. ACTIVITY: As tolerated. DIET: Low sodium. MEDICATIONS: Please see the MRAD. TOTAL TIME: 33 minutes. PROCEDURES: None. KATHARINA TURNER DO DR: DANIEL/devorah JOB#: [id number] / [id number]
== END 2019-01-12 14:00 | disposition home or self-care (01) | DRG 176 ==
LOC: ER 19:11 → 2 SOUTH 22:37
PROVIDERS: ADMIT Family Medicine; ATTEND Family Medicine
DX: I26.99 Other pulmonary embolism without acute cor pulmonale (principal); I10 Essential (primary) hypertension; E78.00 Pure hypercholesterolemia, unspecified; K21.9 Gastro-esophageal reflux disease without esophagitis; E11.9 Type 2 diabetes mellitus without complications; M10.9 Gout, unspecified; E78.5 Hyperlipidemia, unspecified; E66.01 Morbid (severe) obesity due to excess calories; M19.90 Unspecified osteoarthritis, unspecified site; E83.42 Hypomagnesemia; Z82.49 Family history of ischemic heart disease and other diseases of the circulatory system; Z86.711 Personal history of pulmonary embolism; Z79.01 Long term (current) use of anticoagulants; Z86.718 Personal history of other venous thrombosis and embolism; Z83.3 Family history of diabetes mellitus; Z68.39 Body mass index [BMI] 39.0-39.9, adult
CPT/HCPCS: 36415; 71045; 71275; 80048; 80053; 80061; 83690; 83735; 83880; 84484; 85025; 85379; 85520; 93005; 93306; 93970; 96361; 96374; J1644; J3475; J7030; Q9967; 99285-25

== ENCOUNTER → 2019-07-22 | Outpatient (CLI) | payer OTHER ==
[~2019-07-22] MED LIST: ALLO300T PO; AMLO5TAB10 PO; APIX5TAB PO; ATOR20TA58 PO; OMEP40CA5 PO; SILD100T PO
--- NOTE | 2019-07-22 16:38 | KCIC ---
2 view study of the thoracolumbar spine. Clinical indications: Bilateral lower thoracic and lumbar pain for one year FINDINGS: There is mild compression deformity of T11 and T12 which is unchanged from CTA of the chest dated January 10, 2019. No acute compression fracture is demonstrated. No discitis or lytic process is evident. No anterolisthesis of the lumbar spine is evident. There is mild degenerative endplate spurring throughout the lumbar spine and there is mild to moderate degenerative endplate spurring of the lower thoracic spine. Bridging syndesmophytes are seen involving the lower thoracic spine. There is asymmetric ankylosis of the upper left SI joint. These findings may be seen with seronegative spondyloarthropathy. The transverse processes are intact. IMPRESSION: No acute compression fracture. Bridging syndesmophytes of the lower thoracic spine. Asymmetric ankylosis of the left SI joint. This may be seen with a seronegative spondyloarthropathy. Another possibility is diffuse idiopathic skeletal hyperostosis of the thoracic spine. Electronically signed by: Rip Funez MD (07/22/2019 4:34 PM) [facility]
== END | disposition home or self-care (01) ==
LOC: KCIC 12:08
PROVIDERS: ATTEND Family Medicine
DX: M54.6 Pain in thoracic spine (principal); M43.28 Fusion of spine, sacral and sacrococcygeal region
CPT/HCPCS: 72080

== ENCOUNTER → 2019-07-30 | Outpatient (CLI) | payer OTHER ==
--- NOTE | 2019-07-30 17:23 | KCIC ---
EXAM: Single AP view of the pelvis DATE: 07/30/2019 12:00 AM INDICATION: Low back pain, buttock pain COMPARISON: No Prior FINDINGS/ IMPRESSION: No evidence of acute fracture or dislocation. Joint spaces are preserved without significant degenerative/proliferative change. Decreased bone mineral density. Moderate colonic stool content is seen. Electronically signed by: Shadi Kaur MD (07/30/2019 5:20 PM) [facility]
== END | disposition home or self-care (01) ==
LOC: KCIC 11:47
PROVIDERS: ATTEND Internal Medicine Rheumatology
DX: M54.5 Low back pain (principal); K56.41 Fecal impaction
CPT/HCPCS: 72170

== ENCOUNTER → 2020-05-08 | Outpatient (CLI) | payer MEDICARE ==
[~2020-05-08] MED LIST changes: +OMEP40CA45 PO; -OMEP40CA5 PO
--- NOTE | 2020-05-08 08:07 | RAD ---
ABDOMEN COMPLETE History: Acid reflux. Nausea. Comparison: None. Technique: Sonographic examination of the abdomen was performed and multiple grayscale and color Doppler static images were obtained. Findings: Liver demonstrates increased echogenicity. The liver measures 17.6 cm. Portal flow is patent. Common bile duct not identified due to overlying structures and patient body habitus. Gallbladder wall is normal. No cholelithiasis or pericholecystic fluid. Visualized pancreas is not well seen due to overlying bowel gas and patient body habitus. The right kidney measures 9.9 x 4.7 x 4.2 cm. No hydronephrosis. The left kidney measures 12.2 x 5.0 x 6.9 cm. No hydronephrosis. The spleen measures 12.4 cm. Degraded evaluation due to patient body habitus. Aorta and IVC not well seen due to overlying bowel gas. IMPRESSION: 1. Degraded evaluation due to patient body habitus and overlying bowel gas. Common bile duct not identified. 2. Hepatomegaly with increased echotexture, may indicate steatosis. Electronically signed by: Cachorro Tavares DO (05/08/2020 8:05 AM) [id number]
== END ==
LOC: US 06:38
PROVIDERS: ATTEND Family Medicine
DX: R16.0 Hepatomegaly, not elsewhere classified (principal); K21.9 Gastro-esophageal reflux disease without esophagitis
CPT/HCPCS: 76700

== ENCOUNTER 2021-05-04 09:02 | Observation (INO) | payer MEDICARE ==
[~2021-05-04] VITALS: Ht 170.2 cm; Wt 122.4 kg
[~2021-05-04 09:02] MED LIST changes: +AMLO-186 PO; -AMLO5TAB10 PO; -OMEP40CA45 PO; +OMEP40CA7 PO
--- NOTE | 2021-05-04 09:26 | ED.ADGEN ---
Past Medical History Past Medical History: Bronchitis, High Cholesterol, Hypertension Additional Past Surgical Histo: L inguinal hernia, L ankle Smoking Status: Never Smoker Alcohol Use: Occasionally Drug Use: None Social History Narrative: lives with , son, and grandchild General Adult EDM: Chief Complaint: SHORTNESS OF BREATH HPI: HPI: Patient is a 71 year old male who presents to the emergency department with complaints of left-sided chest heaviness and shortness of breath that has been ongoing for the last 3 weeks. Patient denies any chest pain, headache, numbn ess, tingling, weakness, fever, body aches, fatigue, nausea, vomiting, diarrhea, or lower extremity swelling. He reports that he does become diaphoretic when he is exercising only. Patient states that he is also had some episodes where he feels dizzy when he changes positions and first gets up to ambulate. He reports a strong family history of atrial fibrillation but denies any history of A. fib. Patient states he does take Eliquis because about 3 years ago he was diagnosed with a pulmonary embolism. Patient reports that he received both doses of the maternal vaccine he completed the series in January 2021. Patient states that over the last 3 weeks he has had a productive cough with light yellow sputum produced. He currently denies any pain. Review of Systems: Review of Systems: Complete ROS is negative unless otherwise noted in HPI. Allergies: Allergies: Allergies Coded Allergies Type Severity Reaction Last Updated Verified No Known Drug Allergies 07/03/15 No Physical Exam: PE: See Above Constitutional: Well developed, well nourished, no acute distress, non-toxic appearance, obese. [] HENT: Normocephalic, atraumatic, bilateral external ears normal, nose normal. [] Eyes: PERRLA, EOMI, conjunctiva normal, no discharge. [] Neck: Normal range of motion, no stridor. [] Cardiovascular:Heart rate regular irregular rhythm, no murmur Lungs & Thorax: Respirations even and unlabored, no retractions, no respiratory distress, lungs CTA, nontender to palpation Abdomen: soft, no tenderness Skin: Warm, dry, no erythema, no rash. [] Extremities: No cyanosis, ROM intact, no edema. [] Neurologic: Alert and oriented X 3, normal motor, normal sensory, no focal deficits noted. [] Psychologic: Affect normal, judgement normal, mood normal. [] Current Patient Data: Labs: Laboratory Tests Test 05/04/21 09:26 White Blood Count 6.4 x10^3/uL (4.0-11.0) Red Blood Count 4.53 x10^6/uL (4.30-5.70) Hemoglobin 14.8 g/dL (13.0-17.5) Hematocrit 43.2 % (39.0-53.0) Mean Corpuscular Volume 95 fL (79-100) Mean Corpuscular Hemoglobin 33 pg (25-35) Mean Corpuscular Hemoglobin Concent 34 g/dL (31-37) Red Cell Distribution Width 13.7 % (11.5-14.5) Platelet Count 123 x10^3/uL (140-400) L Neutrophils (%) (Auto) 55 % (31-73) Lymphocytes (%) (Auto) 35 % (24-48) Monocytes (%) (Auto) 5 % (0-9) Eosinophils (%) (Auto) 4 % (0-3) H Basophils (%) (Auto) 1 % (0-3) Neutrophils # (Auto) 3.6 x10^3/uL (1.8-7.7) Lymphocytes # (Auto) 2.2 x10^3/uL (1.0-4.8) Monocytes # (Auto) 0.3 x10^3/uL (0.0-1.1) Eosinophils # (Auto) 0.2 x10^3/uL (0.0-0.7) Basophils # (Auto) 0.1 x10^3/uL (0.0-0.2) Sodium Level 142 mmol/L (136-145) Potassium Level 4.1 mmol/L (3.5-5.1) Chloride Level 107 mmol/L (98-107) Carbon Dioxide Level 27 mmol/L (21-32) Anion Gap 8 (6-14) Blood Urea Nitrogen 13 mg/dL (8-26) Creatinine 1.1 mg/dL (0.7-1.3) Estimated GFR (Cockcroft-Gault) 66.4 BUN/Creatinine Ratio 12 (6-20) Glucose Level 143 mg/dL (70-99) H Calcium Level 9.0 mg/dL (8.5-10.1) Magnesium Level 1.5 mg/dL (1.8-2.4) L Total Bilirubin 0.7 mg/dL (0.2-1.0) Aspartate Amino Transferase (AST) 25 U/L (15-37) Alanine Aminotransferase (ALT) 48 U/L (16-63) Alkaline Phosphatase 78 U/L (46-116) Creatine Kinase 76 U/L (39-308) Creatine Kinase MB (Mass) 1.5 ng/mL (0.0-3.6) Creatine Kinase MB Relative Index 2.0 % (0-4) Troponin I Quantitative < 0.017 ng/mL (0.000-0.055) Total Protein 6.8 g/dL (6.4-8.2) Albumin 3.3 g/dL (3.4-5.0) L Albumin/Globulin Ratio 0.9 (1.0-1.7) L Lipase 70 U/L (73-393) L Laboratory Tests 05/04/21 09:26 Laboratory Tests 05/04/21 09:26 Vital Signs: Vital Signs Date Time Temp Pulse Resp B/P (MAP) Pulse Ox O2 Delivery O2 Flow Rate FiO2 05/04/21 09:11 98.1 76 21 154/93 (113) 97 Room Air 98.1 EKG: EK-A. fib rate 76, leftward axis, low limb lead voltage, no STEMI, read by Dr. Wagner [] Heart Score: C/O Chest Pain: Yes HEART Score for Chest Pain: HEART Score for Chest Pain Response (Comments) Value History Slighlty/Non-Suspicious 0 ECG Nonspecific Repolarizatio 1 Age > 65 2 Risk Factors >3 Risk Factors or Hx CAD 2 Troponin < Normal Limit 0 Total 5 Risk Factors: Risk Factors: DM, Current or recent (<one month) smoker, HTN, HLP, family history of CAD, obesity. Risk Scores: Score 0 - 3: 2.5% MACE over next 6 weeks - Discharge Home Score 4 - 6: 20.3% MACE over next 6 weeks - Admit for Clinical Observation Score 7 - 10: 72.7% MACE over next 6 weeks - Early Invasive Strategies Radiology/Procedures: Radiology/Procedures: [] Course & Med Decision Making: Course & Med Decision Making Pertinent Labs and Imaging studies reviewed. (See chart for details) [id number]-spoke with Dr. Villa who is the admitting physician, and care was assumed following discussion of patient. Will admit patient for new onset A. fib and chest pressure as observation status Patient's vital signs stable. Patient remains afebrile, appears nontoxic, respirations even and unlabored. Patient will be admitted to the CVC floor. Patient's case and plan of care also discussed with Dr. Wagner [] Toribio Disclaimer: Toribio Disclaimer: This electronic medical record was generated, in whole or in part, using a voice recognition dictation system. Departure Departure Referrals: Sridhar SALEEM MD (PCP) LÁZARO CABALLERO APRN May 04, 2021 09:26
[2021-05-04 09:38] LABS: BASO # 0.1 x10^3/uL (0.0-0.2); BASO % 1 % (0-3); EOS # 0.2 x10^3/uL (0.0-0.7); EOS % 4 % (0-3); HEMATOCRIT 43.2 % (39.0-53.0); HEMOGLOBIN 14.8 g/dL (13.0-17.5); LYMPH # 2.2 x10^3/uL (1.0-4.8); LYMPH % 35 % (24-48); MEAN CORPUSCULAR HEMOGLOBIN 33 pg (25-35); MEAN CORPUSCULAR HGB CONC 34 g/dL (31-37); MEAN CORPUSCULAR VOLUME 95 fL (79-100); MONO # 0.3 x10^3/uL (0.0-1.1); MONO % 5 % (0-9); NEUT # 3.6 x10^3/uL (1.8-7.7); NEUT % 55 % (31-73); PLATELET COUNT 123 x10^3/uL (140-400); RED BLOOD COUNT 4.53 x10^6/uL (4.30-5.70); RED CELL DISTRIBUTION WIDTH 13.7 % (11.5-14.5); WHITE BLOOD COUNT 6.4 x10^3/uL (4.0-11.0)
[2021-05-04 09:45] LABS: CREATININE 1.1 mg/dL (0.7-1.3); GFR 66.4; POTASSIUM 4.1 mmol/L (3.5-5.1)
--- NOTE | 2021-05-04 09:49 | PDOC1 ---
History and Physical Date of Admission Date of Admission DATE: 05/04/21 TIME: 09:49 Identification/Chief Complaint Chief Complaint shortness of breath, ABNORMAL EKG , sent BY Dr Penn today, cough , chest tightness History of Present Illness History of Present Illness 71 year old male who presented to the emergency department with complaints of left-sided chest heaviness and shortness of breath for the last 3 weeks. Patient denies any chest pain, headache, numbness, tingling, weakness, fever, body aches, fatigue, nausea, vomiting, diarrhea, or lower extremity swelling. He reports that he does become diaphoretic when he is exercising only. Patient states that he is also had some episodes where he feels dizzy when he changes positions and first gets up to ambulate. He reports a strong family history of atrial fibrillation but denies any history of A. fib. Patient states he does take Eliquis because about 3 years ago he was diagnosed with a pulmonary embolism. Patient reports that he received both doses of the covid -19 vaccine he completed the series in January 2021. Patient states that over the last 3 weeks he has had a productive cough with light yellow sputum produced. He currently denies any pain. ekg with artifact EKG reviewed and is NSR 3-19 Bilateral pulmonary emboli Past Medical History Past Medical History Past Medical History Past Medical History: Bronchitis, High Cholesterol, Hypertension Additional Past Surgical Histo: L inguinal hernia, L ankle Smoking Status: Never Smoker Alcohol Use: Occasionally Drug Use: None Social History Narrative: lives with , son, and grandchild fhx obesity Cardiovascular: HTN, Hyperlipidemia Pulmonary: Pulmonary embolus CENTRAL NERVOUS SYSTEM: Other GI: GERD Heme/Onc: Other Hepatobiliary: No pertinent hx Psych: No pertinent hx Musculoskeletal: Osteoarthritis Rheumatologic: Gout Infectious disease: No pertinent hx Renal/: No pertinent hx Endocrine: Diabetes Past Surgical History Past Surgical History: Hernia Repair Family History Family History: Diabetes, Heart Disease, Hypertension Social History Smoke: No ALCOHOL: rare Drugs: None Current Medications Current Medications Active Scripts Active Reported Eliquis (Apixaban) 5 Mg Tablet 5 Mg PO BID Eliquis (Apixaban) 5 Mg Tablet 10 Mg PO BID 7 Days Viagra (Sildenafil Citrate) 100 Mg Tablet 1 Tab PO PRN DAILY Atorvastatin Calcium 20 Mg Tablet 20 Mg PO HS Amlodipine Besylate 5 Mg Tablet 5 Mg PO DAILY Allopurinol 300 Mg Tablet 300 Mg PO DAILY Omeprazole 40 Mg Capsule.dr 40 Mg PO DAILY Allergies Allergies: Coded Allergies: No Known Drug Allergies (Unverified , 07/03/15) ROS General: No: Chills, Night Sweats, Fatigue, Malaise, Appetite, Other PSYCHOLOGICAL ROS: No: Anxiety, Behavioral Disorder, Concentration difficultie, Decreased libido, Depression, Disorientation, Hallucinations, Hostility, Irritablity, Memory difficulties, Mood Swings, Obsessive thoughts, Physical abuse, Sexual abuse, Sleep disturbances, Suicidal ideation, Other Eyes: No Blurry vision, No Decreased vision, No Double vision, No Dry eyes, No Excessive tearing, No Eye Pain, No Itchy Eyes, No Loss of vision, No Photophobia, No Scotomata, No Uses contacts, No Uses glasses, No Other HEENT: No: Heacaches, Visual Changes, Hearing change, Nasal congestion, Nasal discharge, Oral lesions, Sinus pain, Sore Throat, Epistaxis, Sneezing, Snoring, Tinnitus, Vertigo, Vocal changes, Other ALLERGY AND IMMUNOLOGY: No: Hives, Insect Bite Sensitivity, Itchy/Watery Eyes, Nasal Congestion, Post Nasal Drip, Seasonal Allergies, Other Hematological and Lymphatic: YES: Blood Clots; No: Bleeding Problems, Blood Transfusions, Brusing, Night Sweats, Pallor, Swollen Lymph Nodes, Other ENDOCRINE: No: Breast Changes, Galactorrhea, Hair Pattern Changes, Hot Flashes, Malaise/lethargy, Mood Swings, Palpitations, Polydipsia/polyuria, Skin Changes, Temperature Intolerance, Unexpected Weight Changes, Other Breast: No New/Changing Breast Lumps, No Nipple changes, No Nipple discharge, N o Other Respiratory: YES: Cough, Shortness of breath Cardiovascular: yes Palpitations; No Chest Pain, No Orthopnea, No Paroxysmal Noc. Dyspnea, No Edema, No Lt Headedness, No Other Gastrointestinal: No Nausea, No Vomiting, No Abdominal Pain, No Diarrhea, No Constipation, No Melena, No Hematochezia, No Other Genitourinary: No Dysuria, No Frequency, No Incontinence, No Hematuria, No Retention, No Discharge, No Urgency, No Pain, No Flank Pain, No Other, No , No , No , No , No , No , No Musculoskeletal: No Gait Disturbance, No Joint Pain, No Joint Stiffness, No Joint Swelling, No Muscle Pain, No Muscular Weakness, No Pain In:, No Swelling In:, No Other Neurological: No Behavorial Changes, No Bowel/Bladder ControlChng, No Confusion, No Dizziness, No Gait Disturbance, No Headaches, No Impaired Coord/balance, No Memory Loss, No Numbness/Tingling, No Seizures, No Speech Problems, No Tremors, No Visual Changes, No Weakness, No Other Skin: No Dry Skin, No Eczema, No Hair Changes, No Lumps, No Mole Changes, No Mottling, No Nail Changes, No Pruritus, No Rash, No Skin Lesion Changes, No Other, No Acne Physical Exam Physical Exam See Above Constitutional: Well developed, well nourished, no acute distress, non-toxic appearance, obese. [] HENT: Normocephalic, atraumatic, bilateral external ears normal, nose normal. [] Eyes: PERRLA, EOMI, conjunctiva normal, no discharge. [] Neck: Normal range of motion, no stridor. [] Cardiovascular:Heart rate regular irregular rhythm, no murmur Lungs & Thorax: Respirations even and unlabored, no retractions, no respiratory distress, lungs CTA, nontender to palpation Abdomen: soft, no tenderness Skin: Warm, dry, no erythema, no rash. [] Extremities: No cyanosis, ROM intact, no edema. [] Neurologic: Alert and oriented X 3, normal motor, normal sensory, no focal deficits noted. [] Psychologic: Affect normal, judgement normal, mood normal. [] General: Alert, Oriented X3, Cooperative, No acute distress HEENT: Atraumatic, EOMI, Mucous membr. moist/pink Lungs: Clear to auscultation, Normal air movement Heart: RRR, no gallops, no murmurs Breasts: Not examined Abdomen: Normal bowel sounds, Soft, Other (obese) Rectal Exam: not examined Extremities: No cyanosis Neuro: Normal speech, Strength at 5/5 X4 ext, Sensation intact, Cranial nerves 3-12 NL Psych/Mental Status: Mental status NL, Mood NL Vitals Vitals Vital Signs Date Time Temp Pulse Resp B/P (MAP) Pulse Ox O2 Delivery O2 Flow Rate FiO2 05/04/21 09:11 98.1 76 21 154/93 (113) 97 Room Air 98.1 Labs Labs Laboratory Tests Test 05/04/21 09:26 White Blood Count 6.4 x10^3/uL (4.0-11.0) Red Blood Count 4.53 x10^6/uL (4.30-5.70) Hemoglobin 14.8 g/dL (13.0-17.5) Hematocrit 43.2 % (39.0-53.0) Mean Corpuscular Volume 95 fL (79-100) Mean Corpuscular Hemoglobin 33 pg (25-35) Mean Corpuscular Hemoglobin Concent 34 g/dL (31-37) Red Cell Distribution Width 13.7 % (11.5-14.5) Platelet Count 123 x10^3/uL (140-400) Neutrophils (%) (Auto) 55 % (31-73) Lymphocytes (%) (Auto) 35 % (24-48) Monocytes (%) (Auto) 5 % (0-9) Eosinophils (%) (Auto) 4 % (0-3) Basophils (%) (Auto) 1 % (0-3) Neutrophils # (Auto) 3.6 x10^3/uL (1.8-7.7) Lymphocytes # (Auto) 2.2 x10^3/uL (1.0-4.8) Monocytes # (Auto) 0.3 x10^3/uL (0.0-1.1) Eosinophils # (Auto) 0.2 x10^3/uL (0.0-0.7) Basophils # (Auto) 0.1 x10^3/uL (0.0-0.2) Sodium Level 142 mmol/L (136-145) Potassium Level 4.1 mmol/L (3.5-5.1) Chloride Level 107 mmol/L (98-107) Carbon Dioxide Level 27 mmol/L (21-32) Anion Gap 8 (6-14) Blood Urea Nitrogen 13 mg/dL (8-26) Creatinine 1.1 mg/dL (0.7-1.3) Estimated GFR (Cockcroft-Gault) 66.4 BUN/Creatinine Ratio 12 (6-20) Glucose Level 143 mg/dL (70-99) Calcium Level 9.0 mg/dL (8.5-10.1) Laboratory Tests Test 05/04/21 09:26 White Blood Count 6.4 x10^3/uL (4.0-11.0) Red Blood Count 4.53 x10^6/uL (4.30-5.70) Hemoglobin 14.8 g/dL (13.0-17.5) Hematocrit 43.2 % (39.0-53.0) Mean Corpuscular Volume 95 fL (79-100) Mean Corpuscular Hemoglobin 33 pg (25-35) Mean Corpuscular Hemoglobin Concent 34 g/dL (31-37) Red Cell Distribution Width 13.7 % (11.5-14.5) Platelet Count 123 x10^3/uL (140-400) Neutrophils (%) (Auto) 55 % (31-73) Lymphocytes (%) (Auto) 35 % (24-48) Monocytes (%) (Auto) 5 % (0-9) Eosinophils (%) (Auto) 4 % (0-3) Basophils (%) (Auto) 1 % (0-3) Neutrophils # (Auto) 3.6 x10^3/uL (1.8-7.7) Lymphocytes # (Auto) 2.2 x10^3/uL (1.0-4.8) Monocytes # (Auto) 0.3 x10^3/uL (0.0-1.1) Eosinophils # (Auto) 0.2 x10^3/uL (0.0-0.7) Basophils # (Auto) 0.1 x10^3/uL (0.0-0.2) Sodium Level 142 mmol/L (136-145) Potassium Level 4.1 mmol/L (3.5-5.1) Chloride Level 107 mmol/L (98-107) Carbon Dioxide Level 27 mmol/L (21-32) Anion Gap 8 (6-14) Blood Urea Nitrogen 13 mg/dL (8-26) Creatinine 1.1 mg/dL (0.7-1.3) Estimated GFR (Cockcroft-Gault) 66.4 BUN/Creatinine Ratio 12 (6-20) Glucose Level 143 mg/dL (70-99) Calcium Level 9.0 mg/dL (8.5-10.1) Images Images INDICATION: Reason: chest pain / Spl. Instructions: / History: COMPARISON: January 10, 2019 FINDINGS: Single view of chest obtained. Enlarged cardiomediastinal silhouette. No focal airspace consolidation. Degenerative changes the spine. There is a density projecting over the mediastinum. IMPRESSION: * Enlarged cardiomediastinal silhouette. * Additionally there is a density projecting over the cardiac silhouette. Causes such as hiatal hernia are within the differential. Electronically signed by: Sadia Earl MD (05/04/2021 9:45 AM) [id number] DICTATED and SIGNED BY: SADIA EARL MD DATE: 05/04/21 [id number] 0 Tricuspid Valve TR P. Velocity 261cm/s RAP ESTIMATE 3mmHg TR Peak Gr. 27mmHg RVSP 30mmHg Pulmonary Vein S1 Velocity 61.2cm/s S2 Velocity 37.38cm/s D2 Velocity 37.4cm/s PVa duration 97msec LEFT VENTRICLE The left ventricle is normal size. There is moderate concentric left ventricular hypertrophy. The left ventricular systolic function is normal and the ejection fraction is within normal range. The Ejection Fraction is 50-55%. There is grossly normal LV segmental wall motion. Transmitral Doppler flow pattern is Grade II-pseudonormal filling dynamics. RIGHT VENTRICLE The right ventricle is borderline dilated. There is normal right ventricular wall thickness. The right ventricular systolic function is normal. ATRIA The left atrium size is normal. The right atrium size is normal. The interatrial septum is intact with no evidence for an atrial septal defect or patent foramen ovale as noted on 2-D or Doppler imaging. AORTIC VALVE The aortic valve is normal in structure and function. Doppler and Color Flow revealed no significant aortic regurgitation. There is no significant aortic valvular stenosis. MITRAL VALVE The mitral valve is normal in structure and function. There is no evidence of mitral valve prolapse. There is no mitral valve stenosis. Doppler and Color Flow revealed no mitral valve regurgitation noted. TRICUSPID VALVE The tricuspid valve is normal in structure and function. Doppler and Color Flow revealed trace tricuspid regurgitation with an estimated PAP of 30 mmHg. There is no tricuspid valve stenosis. PULMONIC VALVE The pulmonic valve is not well visualized. Doppler and Color Flow revealed no pulmonic valvular regurgitation. GREAT VESSELS The aortic root is normal in size. The IVC was not visualized. PERICARDIAL EFFUSION There is no evidence of significant pericardial effusion. Critical Notification Critical Value: No <Conclusion> The left ventricular systolic function is normal and the ejection fraction is within normal range. The Ejection Fraction is 50-55%. There is grossly normal LV segmental wall motion. The right ventricle is borderline dilated. Signed by : Haritha Gibson, Electronically Approved : 01/11/2019 18:00:39 DICTATED and SIGNED BY: HARITHA GIBSON MD DATE: 01/11/19 1800 VTE Prophylaxis Ordered VTE Prophylaxis Devices: Yes VTE Pharmacological Prophylaxi: Yes Assessment/Plan Assessment/Plan impression Chest discomfort, tightness Morbid obesity Bilateral pulmonary emboli 3-19 hyperlipidemia GERD COUGH with bronchitis plan ADMIT Consult cardiology trend troponin i tsh home meds po doxy 100mg po bid cont eliquis 5 mg po bid duonebs qid D/W ER Justifications for Admission Other Justification YVONNE NOLAND MD May 04, 2021 09:49
[2021-05-04 09:51] LABS: ALBUMIN 3.3 g/dL (3.4-5.0); ALBUMIN/GLOBULIN RATIO 0.9 (1.0-1.7); MAGNESIUM 1.5 mg/dL (1.8-2.4); TOTAL BILIRUBIN 0.7 mg/dL (0.2-1.0); TOTAL PROTEIN 6.8 g/dL (6.4-8.2)
[2021-05-04] MEDS ORDERED: MAGNESIUM SULFATE 2GM 50 ML IV ONE (13:00)
--- NOTE | 2021-05-04 13:03 | PDOC2 ---
JOHN,SDSUBHA GARCIA 05/04/21 1303: CARDIAC CONSULT DATE OF CONSULT Date of Consult DATE: 05/04/21 TIME: 12:53 REASON FOR CONSULT Reason for Consult: new onset AFIB REFERRING PHYSICIAN Referring Physician: John Anderson APRN SOURCE Source: Chart review, Patient HISTORY OF PRESENT ILLNESS HISTORY OF PRESENT ILLNESS This is a 71 yo male who presented secondary to chest pain, heaviness. Patient reports experiencing heaviness/pressure in his left chest and shortness of breath for the last 3 weeks. Worse with exertion. Associated with fatigue. Has experienced some dizziness over the last couple of days. Initially though symptoms were due to the heat, but symptoms progressed with lower temperatures so he made an appointment with primary care provided for evaluation. EKG with concerns for AFIB. Patient was referred to the ED for further evaluation and treatment. He denies any nausea/vomiting or diaphoresis. No recent fevers or illness. Does have a history of PE and is on chronic OAC with Eliquis. Reports compliance with therapy. PAST MEDICAL HISTORY Past Medical History Cardiovascular: HTN, Hyperlipidemia Pulmonary: Pulmonary embolus CENTRAL NERVOUS SYSTEM: Other (no pertinent hx) GI: GERD Heme/Onc: Other (DVT) Hepatobiliary: No pertinent hx Psych: No pertinent hx Musculoskeletal: Osteoarthritis Rheumatologic: Gout Infectious disease: No pertinent hx ENT: No pertinent hx Renal/: No pertinent hx Endocrine: Diabetes ("borderline") Dermatology: No pertinent hx PAST SURGICAL HISTORY Past Surgical History: Hernia Repair FAMILY HISTORY Family History Diabetes, Heart Disease, Hypertension SOCIAL HISTORY Social History Smoke: No ALCOHOL: rare Drugs: None Lives: with Family ALLERGIES ALLERGIES: Coded Allergies: No Known Drug Allergies (Unverified , 07/03/15) ROS Review of System 14 point ROS conducted with pertinent positives noted in HPI PHYSICAL EXAM PHYSICAL EXAM General: Alert, Oriented X3, Cooperative, No acute distress HEENT: Atraumatic, Mucous membr. moist/pink Lungs: diminished bases Heart: Regular rate, Normal S1, Normal S2 Abdomen: Soft, No tenderness Extremities: No edema, Normal pulses Skin: No significant lesion Neuro: Normal speech, Sensation intact Psych/Mental Status: Mental status NL, Mood NL MUSCULOSKELETAL: Osteoarthritic changes both hands VITALS/I&O VITALS/I&O: Vital Signs Date Time Temp Pulse Resp B/P (MAP) Pulse Ox O2 Delivery O2 Flow Rate FiO2 05/04/21 09:11 98.1 76 21 154/93 (113) 97 Room Air 98.1 LABS Lab: Laboratory Tests Test 05/04/21 09:26 05/04/21 11:30 White Blood Count 6.4 x10^3/uL (4.0-11.0) Red Blood Count 4.53 x10^6/uL (4.30-5.70) Hemoglobin 14.8 g/dL (13.0-17.5) Hematocrit 43.2 % (39.0-53.0) Mean Corpuscular Volume 95 fL (79-100) Mean Corpuscular Hemoglobin 33 pg (25-35) Mean Corpuscular Hemoglobin Concent 34 g/dL (31-37) Red Cell Distribution Width 13.7 % (11.5-14.5) Platelet Count 123 x10^3/uL (140-400) L Neutrophils (%) (Auto) 55 % (31-73) Lymphocytes (%) (Auto) 35 % (24-48) Monocytes (%) (Auto) 5 % (0-9) Eosinophils (%) (Auto) 4 % (0-3) H Basophils (%) (Auto) 1 % (0-3) Neutrophils # (Auto) 3.6 x10^3/uL (1.8-7.7) Lymphocytes # (Auto) 2.2 x10^3/uL (1.0-4.8) Monocytes # (Auto) 0.3 x10^3/uL (0.0-1.1) Eosinophils # (Auto) 0.2 x10^3/uL (0.0-0.7) Basophils # (Auto) 0.1 x10^3/uL (0.0-0.2) Sodium Level 142 mmol/L (136-145) Potassium Level 4.1 mmol/L (3.5-5.1) Chloride Level 107 mmol/L (98-107) Carbon Dioxide Level 27 mmol/L (21-32) Anion Gap 8 (6-14) Blood Urea Nitrogen 13 mg/dL (8-26) Creatinine 1.1 mg/dL (0.7-1.3) Estimated GFR (Cockcroft-Gault) 66.4 BUN/Creatinine Ratio 12 (6-20) Glucose Level 143 mg/dL (70-99) H Calcium Level 9.0 mg/dL (8.5-10.1) Magnesium Level 1.5 mg/dL (1.8-2.4) L Total Bilirubin 0.7 mg/dL (0.2-1.0) Aspartate Amino Transferase (AST) 25 U/L (15-37) Alanine Aminotransferase (ALT) 48 U/L (16-63) Alkaline Phosphatase 78 U/L (46-116) Creatine Kinase 76 U/L (39-308) Creatine Kinase MB (Mass) 1.5 ng/mL (0.0-3.6) Creatine Kinase MB Relative Index 2.0 % (0-4) Troponin I Quantitative < 0.017 ng/mL (0.000-0.055) < 0.017 ng/mL (0.000-0.055) Total Protein 6.8 g/dL (6.4-8.2) Albumin 3.3 g/dL (3.4-5.0) L Albumin/Globulin Ratio 0.9 (1.0-1.7) L Lipase 70 U/L (73-393) L Laboratory Tests 05/04/21 09:26 Laboratory Tests 05/04/21 09:26 ECHOCARDIOGRAM ECHOCARDIOGRAM <Conclusion> The left ventricular systolic function is normal and the ejection fraction is within normal range. The Ejection Fraction is 50-55%. There is grossly normal LV segmental wall motion. The right ventricle is borderline dilated. DATE: 01/11/19 1800 STRESS TEST STRESS TEST Conclusion 1. No evidence of EKG changes with stress testing. 2. Normal perfusion at stress/rest. 3. Low risk study. 4. EF > 60%. DATE: 02/07/19 1234 ASSESSMENT/PLAN ASSESSMENT/PLAN 1. Chest pain, mixed features; trop negative x2. AMI ruled out. Initial EKG read as AFIB. EKG reviewed and is NSR 2. N[place]ON; ? anginal equivalent. 3. Hypertension; controlled 4. Hyperlipidemia; statin 5. Hypomagnesemia; replaced 6. H/o PE; chronic OAC Recommendations Lipids Echo to assess LV systolic function TSH Replace Mg Monitor tele Will need further ischemic evaluation Further pending above Supportive care HARITHA BLOOM MD 05/04/21 1530: CARDIAC CONSULT ASSESSMENT/PLAN ASSESSMENT/PLAN The patient was seen and interviewed as well as examined at the bedside. The chart was reviewed. The case was discussed. Agree with the plan of care. SD LOPEZ APRN May 04, 2021 13:03 HARITHA BLOOM MD May 04, 2021 15:30
--- NOTE | 2021-05-04 13:42 | EKG ---
[facility] [address] [place] [address] Test Date: 2021-05-04 Test Time: 09:11:29 Pat Name: ILIA HERNANDEZ Department: Room: ED HOLD 18 Gender: M [employer]: : 1950 Requested By: LÁZARO CABALLERO Order Number: [id number] Reading MD: Luiz Gibson MD Measurements Intervals [place] Rate: 76 P: CA: QRS: -2 QRSD: 92 T: 2 QT: 374 QTc: 425 Interpretive Statements SR Electronically Signed On 05-04-2021 15:27:52 CDT by Luiz Gibson MD
--- NOTE | 2021-05-04 13:43 | RAD ---
INDICATION: Reason: chest pain / Spl. Instructions: / History: COMPARISON: January 10, 2019 FINDINGS: Single view of chest obtained. Enlarged cardiomediastinal silhouette. No focal airspace consolidation. Degenerative changes the spine. There is a density projecting over the mediastinum. IMPRESSION: * Enlarged cardiomediastinal silhouette. * Additionally there is a density projecting over the cardiac silhouette. Causes such as hiatal damon ia are within the differential. Electronically signed by: Shon Fontanez MD (05/04/2021 9:45 AM) [id number]
[2021-05-04 14:20] VITALS: BP 134/86
[2021-05-04] MEDS ORDERED: ALBUTEROL SULFATE 2.5 MG/3 ML NEBU. NEB PRN (14:45)
[2021-05-04] MEDS ORDERED: ZOLPIDEM 5 MG TABLET. PO PRN (14:45)
[2021-05-04] MEDS ORDERED: 0.9 % SODIUM CHLORIDE 10 ML DISP.SYRIN. IV PRN (14:45)
[2021-05-04] MEDS ORDERED: guaiFENesin ORAL 200 MG/10 ML LIQUID. PO PRN (14:45)
[2021-05-04] MEDS ORDERED: cloNIDine HCL 0.1 MG TABLET PO PRN (14:45)
[2021-05-04] MEDS ORDERED: diphenhydrAMINE 50 MG/ML VIAL IVP PRN (14:45)
[2021-05-04] MEDS ORDERED: MAG HYDROX/ALUMINUM HYD/SIMETH 30 ML ORAL.SUSP PO PRN (14:45)
[2021-05-04] MEDS ORDERED: DOCUSATE SODIUM 100 MG CAPSULE. PO PRN (14:45)
[2021-05-04] MEDS ORDERED: LORazepam 0.5 MG TABLET PO PRN (14:45)
[2021-05-04] MEDS ORDERED: SODIUM PHOSPHATES 19/7GM 133 ML ENEMA. PR PRN (14:45)
[2021-05-04] MEDS ORDERED: ACETAMINOPHEN 325 MG TABLET. PO PRN (14:45)
[2021-05-04] MEDS ORDERED: ONDANSETRON PF 4 MG/2 ML VIAL. IV PRN (14:45)
[2021-05-04] MEDS ORDERED: ANTI-COAG MONITOR BY PHARMACY. MC PRN (15:00)
[2021-05-04] MEDS ORDERED: PERFLUTREN PROTEIN-A MICROSPHR 0.22 MG/ML 3 ML VIAL. IV ONE ×2 (15:14→15:30)
--- NOTE | 2021-05-04 15:14 | NUR ---
The patient, ILIA HERNANDEZ, 71 y/o, M admitted by YVONNE NOLAND MD, was given written information regarding hospital policies, unit procedures and contact persons. Pt in stable condition at time of admission. Valuables were taken home by .
[2021-05-04] MEDS ORDERED: ASCO100019 PO (15:58)
[2021-05-04] MEDS ORDERED: CYCL10TA2 PO (15:58)
[2021-05-04] MEDS ORDERED: DULO60CA6 PO (15:58)
[2021-05-04] MEDS ORDERED: VITA400C37 PO (15:58)
[2021-05-04] MEDS ORDERED: CALC-31 PO (15:58)
[2021-05-04] MEDS ORDERED: SILD20TA4 PO (15:58)
[2021-05-04] MEDS ORDERED: VITA1CAP7 PO (15:58)
[2021-05-04] MEDS ORDERED: FOLI0.8T5 PO (15:58)
[2021-05-04] MEDS ORDERED: ZINC50TA39 PO (15:58)
[2021-05-04] MEDS ORDERED: CHOL10004 PO (15:58)
[2021-05-04] MEDS ORDERED: OMEG1CAP27 PO (15:58)
[2021-05-04] MEDS ORDERED: PANTOPRAZOLE 40 MG TABLET.DR. PO SCH (16:30)
[2021-05-04] MEDS ORDERED: DOXY100C2 PO (16:52)
--- NOTE | 2021-05-04 16:54 | CARD ---
MR#: [id number] Date of Study: 05/04/2021 Ordering Physician: SD LOPEZ, Referring Physician: SD LOPEZ, Tech: Ting Norton [facility] APPROVED REPORT EXAM: Two-dimensional and M-mode echocardiogram with Doppler and color Doppler. Other Information Quality : Technically LimitedHR: 75bpm Rhythm : NSR INDICATION Chest Pain Echo Enhancing Agent Indication: Endocardial border delineation Agent/Amount Used: Optison 2mL RISK FACTORS Hypertension Obesity Hyperlipidemia 2D DIMENSIONS RVDd3.5 (2.9-3.5cm)Left Atrium(2D)4.2 (1.6-4.0cm) IVSd1.1 (0.7-1.1cm)Aortic Root(2D)2.8 (2.0-3.7cm) LVDd4.6 (3.9-5.9cm)LVOT Diameter2.3 (1.8-2.4cm) PWd1.1 (0.7-1.1cm)LVDs4.0 (2.5-4.0cm) FS (%) 13.1 %SV27.1 ml LVEF(%)28.2 (>50%) Aortic Valve AoV Peak Kenny.109.6cm/sAoV VTI23.2cm AO Peak GR.4.8mmHgLVOT Peak Kenny.106.9cm/s AO Mean GR.2mmHgAVA (VMAX)4.18cm2 Mitral Valve MV E Txvawmyj25.4cm/sMV DECEL [id number] MV A Rckcobeg82.5cm/sE/A Ratio1.1 Pulmonary Valve PV Peak Wrijzteh107.0cm/s Tricuspid Valve TR P. [id number]/sTR Peak Gr.17mmHg LEFT VENTRICLE The left ventricle is normal size. There is borderline concentric left ventricular hypertrophy. The l eft ventricular systolic function is normal and the ejection fraction is within normal range. Estimat ed ejection fraction 60-65%. There is normal LV segmental wall motion. Tissue Doppler imaging reveals moderate left ventricular diastolic dysfunction. RIGHT VENTRICLE The right ventricle is normal size. There is normal right ventricular wall thickness. The right ventr icular systolic function is normal. ATRIA The left atrium size is normal. The right atrium size is normal. The interatrial septum is intact wit h no evidence for an atrial septal defect or patent foramen ovale as noted on 2-D or Doppler imaging. AORTIC VALVE The aortic valve is normal in structure and function. Doppler and Color Flow revealed no significant aortic regurgitation. There is no significant aortic valvular stenosis. MITRAL VALVE The mitral valve is normal in structure and function. There is no evidence of mitral valve prolapse. There is no mitral valve stenosis. Doppler and Color-flow revealed trace mitral regurgitation. TRICUSPID VALVE The tricuspid valve is normal in structure and function. Doppler and Color Flow revealed trace tricus pid regurgitation. Estimated PAP 20-25 mmHg. There is no tricuspid valve stenosis. PULMONIC VALVE Doppler and Color Flow revealed no pulmonic valvular regurgitation. There is no pulmonic valvular kimber nosis. GREAT VESSELS The aortic root is normal in size. The ascending aorta is normal in size. The IVC was not visualized. PERICARDIAL EFFUSION There is no evidence of significant pericardial effusion. Critical Notification Critical Value: No <Conclusion> The left ventricular systolic function is normal and the ejection fraction is within normal range. E stimated ejection fraction 60-65%. There is normal LV segmental wall motion. Signed by : Luiz Gibson, Electronically Approved : 05/04/2021 16:54:24
--- NOTE | 2021-05-04 17:22 | PDOC3 ---
Discharge Summary Date of Admission: May 04, 2021 Date of Discharge: May 04, 2021 Follow-Up: Other (1 week cardiology) Admitting Diagnosis comment: VTE Prophylaxis Ordered VTE Prophylaxis Devices: Yes VTE Pharmacological Prophylaxi: Yes hospital summary F/U CARDIOLOGY 1 WEEK FOR STRESS TESTING CONSULTS CARDIOLOGY, approved for out patient treatment d/c meds see mar complications none d/c condition good DISCHARGE DX Assessment/Plan impression Chest discomfort, tightness, Atypical Morbid obesity Bilateral pulmonary emboli 3-19 hyperlipidemia GERD COUGH with bronchitis plan ADMIT Consult cardiology trend troponin i tsh home meds po doxy 100mg po bid cont eliquis 5 mg po bid duonebs qid D/W ER DR Identification/Chief Complaint Chief Complaint shortness of breath, ABNORMAL EKG , sent BY Dr Penn today, cough , chest tightness History of Present Illness History of Present Illness 71 year old male who presented to the emergency department with complaints of left-sided chest heaviness and shortness of breath for the last 3 weeks. Patient denies any chest pain, headache, numbness, tingling, weakness, fever, body aches, fatigue, nausea, vomiting, diarrhea, or lower extremity swelling. He reports that he does become diaphoretic when he is exercising only. Patient states that he is also had some episodes where he feels dizzy when he changes positions and first gets up to ambulate. He reports a strong family history of atrial fibrillation but denies any history of A. fib. Patient states he does take Eliquis because about 3 years ago he was diagnosed with a pulmonary embolism. Patient reports that he received both doses of the covid -19 vaccine he completed the series in January 2021. Patient states that over the last 3 weeks he has had a productive cough with light yellow sputum produced. He currently denies any pain. ekg with artifact EKG reviewed and is NSR 3-19 Bilateral pulmonary emboli Past Medical History Past Medical History Past Medical History Past Medical History: Bronchitis, High Cholesterol, Hypertension Additional Past Surgical Histo: L inguinal hernia, L ankle Smoking Status: Never Smoker Alcohol Use: Occasionally Drug Use: None Social History Narrative: lives with , son, and grandchild fhx obesity Cardiovascular: HTN, Hyperlipidemia Pulmonary: Pulmonary embolus CENTRAL NERVOUS SYSTEM: Other GI: GERD Heme/Onc: Other Hepatobiliary: No pertinent hx Psych: No pertinent hx Musculoskeletal: Osteoarthritis Rheumatologic: Gout Infectious disease: No pertinent hx Renal/: No pertinent hx Endocrine: Diabetes Past Surgical History Past Surgical History: Hernia Repair Family History Family History: Diabetes, Heart Disease, Hypertension Social History Smoke: No ALCOHOL: rare Drugs: None Current Medications Current Medications Active Scripts Active Reported Eliquis (Apixaban) 5 Mg Tablet 5 Mg PO BID Eliquis (Apixaban) 5 Mg Tablet 10 Mg PO BID 7 Days Viagra (Sildenafil Citrate) 100 Mg Tablet 1 Tab PO PRN DAILY Atorvastatin Calcium 20 Mg Tablet 20 Mg PO HS Amlodipine Besylate 5 Mg Tablet 5 Mg PO DAILY Allopurinol 300 Mg Tablet 300 Mg PO DAILY Omeprazole 40 Mg Capsule.dr 40 Mg PO DAILY Allergies Allergies: Coded Allergies: No Known Drug Allergies (Unverified , 07/03/15) ROS General: No: Chills, Night Sweats, Fatigue, Malaise, Appetite, Other PSYCHOLOGICAL ROS: No: Anxiety, Behavioral Disorder, Concentration difficultie, Decreased libido, Depression, Disorientation, Hallucinations, Hostility, Irritablity, Memory difficulties, Mood Swings, Obsessive thoughts, Physical abuse, Sexual abuse, Sleep disturbances, Suicidal ideation, Other Eyes: No Blurry vision, No Decreased vision, No Double vision, No Dry eyes, No Excessive tearing, No Eye Pain, No Itchy Eyes, No Loss of vision, No Photophobia, No Scotomata, No Uses contacts, No Uses glasses, No Other HEENT: No: Heacaches, Visual Changes, Hearing change, Nasal congestion, Nasal discharge, Oral lesions, Sinus pain, Sore Throat, Epistaxis, Sneezing, Snoring, Tinnitus, Vertigo, Vocal changes, Other ALLERGY AND IMMUNOLOGY: No: Hives, Insect Bite Sensitivity, Itchy/Watery Eyes, Nasal Congestion, Post Nasal Drip, Seasonal Allergies, Other Hematological and Lymphatic: YES: Blood Clots; No: Bleeding Problems, Blood Transfusions, Brusing, Night Sweats, Pallor, Swollen Lymph Nodes, Other ENDOCRINE: No: Breast Changes, Galactorrhea, Hair Pattern Changes, Hot Flashes, Malaise/lethargy, Mood Swings, Palpitations, Polydipsia/polyuria, Skin Changes, Temperature Intolerance, Unexpected Weight Changes, Other Breast: No New/Changing Breast Lumps, No Nipple changes, No Nipple discharge, No Other Respiratory: YES: Cough, Shortness of breath Cardiovascular: yes Palpitations; No Chest Pain, No Orthopnea, No Paroxysmal Noc. Dyspnea, No Edema, No Lt Headedness, No Other Gastrointestinal: No Nausea, No Vomiting, No Abdominal Pain, No Diarrhea, No Constipation, No Melena, No Hematochezia, No Other Genitourinary: No Dysuria, No Frequency, No Incontinence, No Hematuria, No Retention, No Discharge, No Urgency, No Pain, No Flank Pain, No Other, No , No , No , No , No , No , No Musculoskeletal: No Gait Disturbance, No Joint Pain, No Joint Stiffness, No Joint Swelling, No Muscle Pain, No Muscular Weakness, No Pain In:, No Swelling In:, No Other Neurological: No Behavorial Changes, No Bowel/Bladder ControlChng, No Confusion, No Dizziness, No Gait Disturbance, No Headaches, No Impaired Coord/balance, No Memory Loss, No Numbness/Tingling, No Seizures, No Speech Problems, No Tremors, No Visual Changes, No Weakness, No Other Skin: No Dry Skin, No Eczema, No Hair Changes, No Lumps, No Mole Changes, No Mottling, No Nail Changes, No Pruritus, No Rash, No Skin Lesion Changes, No Other, No Acne FINAL DIAGNOSIS Problems Medical Problems: (1) Chest pressure Status: Acute (2) New onset a-fib Status: Acute Brief Hospital Course Mr. Carpenter is a 71 old [sex] who presented with [chest discomfort, SOA ] CONDITION AT DISCHARGE: Improved Discharge Medications Current Medications Magnesium Sulfate 50 ml @ 25 mls/hr 1X ONCE IV ; Start 05/04/21 at 13:00; Stop 05/04/21 at 15:01; Status DC Sodium Chloride (Normal Saline Flush) 3 ml QSHIFT PRN IV AFTER MEDS AND BLOOD DRAWS; Start 05/04/21 at 14:45 Ondansetron HCl (Zofran) 4 mg PRN Q4HRS PRN IV NAUSEA/VOMITING; Start 05/04/21 at 14:45 Zolpidem Tartrate (Ambien) 5 mg PRN QHS PRN PO INSOMNIA; Start 05/04/21 at 14:45 Acetaminophen (Tylenol) 650 mg PRN Q4HRS PRN PO TEMP OVER 100.4F OR MILD PAIN; Start 05/04/21 at 14:45 Al Hydroxide/Mg Hydroxide (Mylanta Plus Xs) 30 ml PRN DAILY PRN PO HEARTBURN / GAS; Start 05/04/21 at 14:45 Clonidine HCl (Catapres) 0.1 mg PRN Q6HRS PRN PO SBP>160 OR DBP>90; Start 05/04/21 at 14:45 Sodium Monofluorophosphate (Fleet Adult) 133 ml PRN DAILY PRN ND CONSTIPATION; Start 05/04/21 at 14:45 Diphenhydramine HCl (Benadryl) 25 mg PRN Q4HRS PRN IVP ITCHING; Start 05/04/21 at 14:45 Docusate Sodium (Colace) 100 mg PRN BID PRN PO HARD STOOLS; Start 05/04/21 at 14:45 Albuterol Sulfate (Ventolin Neb Soln) 2.5 mg PRN Q4HRS PRN NEB SHORTNESS OF BREATH; Start 05/04/21 at 14:45 Guaifenesin (Robitussin) 200 mg PRN Q4HRS PRN PO COUGH; Start 05/04/21 at 14:45 Lorazepam (Ativan) 0.5 mg PRN Q4HRS PRN PO ANXIETY / AGITATION; Start 05/04/21 at 14:45 Allopurinol (Zyloprim) 300 mg DAILY PO ; Start 05/05/21 at 09:00 Amlodipine Besylate (Norvasc) 5 mg DAILY PO ; Start 05/05/21 at 09:00 Apixaban (Eliquis) 5 mg BID PO ; Start 05/04/21 at 21:00 Atorvastatin Calcium (Lipitor) 20 mg HS PO ; Start 05/04/21 at 21:00 Pantoprazole Sodium (Protonix) 40 mg DAILYAC PO ; Start 05/04/21 at 16:30 Doxycycline Hyclate (Vibra-Tab) 100 mg BID PO ; Start 05/04/21 at 21:00 Info (Anti-Coagulation Monitoring By Pharmacy) 1 each PRN DAILY PRN MC PER PROTOCOL; Start 05/04/21 at 15:00 Perflutren Protein Type A Microsphe (Optison) 0.66 mg 1X ONCE IV Last admin istered on 05/04/21at 15:28; Start 05/04/21 at 15:30; Stop 05/04/21 at 15:31; Status DC Active Scripts Active Reported Doxycycline Hyclate 100 Mg Capsule 1 Cap PO BID Vitamin C (Ascorbic Acid) 1,000 Mg Tablet 1,000 Mg PO DAILY Zinc 50 Mg Tablet 1 Tab PO DAILY 30 Days Folic Acid 0.8 Mg Tablet 0.8 Mg PO DAILY Vitamin E (Vitamin E Acetate) 400 Unit Capsule 180 Unit PO DAILY Super B-50 Complex (Vitamin B Complex) 1 Each Capsule 1 Each PO DAILY Fish Oil 1,000 Mg Softgel (Glidden-3 Fatty Acids/Fish Oil) 1 Each Capsule 1 Cap PO DAILY 30 Days WITH MEALS Vitamin D3 (Vitamin D) 25 Mcg Tablet 50 Mcg PO DAILY 1,000 UNITS = 25 MCG Calcium 500 + D Tablet (Calcium Carbonate/Vitamin D3) 1 Each Tablet 1 Tab PO DAILY 30 Days Cyclobenzaprine Hcl 10 Mg Tablet 1 Tab PO PRN TID PRN Cymbalta (Duloxetine Hcl) 60 Mg Capsule.dr 1 Cap PO DAILY Sildenafil (Sildenafil Citrate) 20 Mg Tablet 100 Mg PO PRN TID PRN Eliquis (Apixaban) 5 Mg Tablet 5 Mg PO BID Viagra (Sildenafil Citrate) 100 Mg Tablet 1 Tab PO PRN DAILY Atorvastatin Calcium 20 Mg Tablet 20 Mg PO HS Amlodipine Besylate 5 Mg Tablet 5 Mg PO DAILY Allopurinol 300 Mg Tablet 300 Mg PO DAILY Omeprazole 40 Mg Capsule.dr 40 Mg PO DAILY Vital Signs Vital Signs Date Time Temp Pulse Resp B/P (MAP) Pulse Ox O2 Delivery O2 Flow Rate FiO2 05/04/21 14:20 97.6 75 18 134/86 (102) 97 Room Air 97.6 Labs Laboratory Tests Test 05/04/21 09:26 05/04/21 11:30 White Blood Count 6.4 x10^3/uL (4.0-11.0) Red Blood Count 4.53 x10^6/uL (4.30-5.70) Hemoglobin 14.8 g/dL (13.0-17.5) Hematocrit 43.2 % (39.0-53.0) Mean Corpuscular Volume 95 fL (79-100) Mean Corpuscular Hemoglobin 33 pg (25-35) Mean Corpuscular Hemoglobin Concent 34 g/dL (31-37) Red Cell Distribution Width 13.7 % (11.5-14.5) Platelet Count 123 x10^3/uL (140-400) Neutrophils (%) (Auto) 55 % (31-73) Lymphocytes (%) (Auto) 35 % (24-48) Monocytes (%) (Auto) 5 % (0-9) Eosinophils (%) (Auto) 4 % (0-3) Basophils (%) (Auto) 1 % (0-3) Neutrophils # (Auto) 3.6 x10^3/uL (1.8-7.7) Lymphocytes # (Auto) 2.2 x10^3/uL (1.0-4.8) Monocytes # (Auto) 0.3 x10^3/uL (0.0-1.1) Eosinophils # (Auto) 0.2 x10^3/uL (0.0-0.7) Basophils # (Auto) 0.1 x10^3/uL (0.0-0.2) Sodium Level 142 mmol/L (136-145) Potassium Level 4.1 mmol/L (3.5-5.1) Chloride Level 107 mmol/L (98-107) Carbon Dioxide Level 27 mmol/L (21-32) Anion Gap 8 (6-14) Blood Urea Nitrogen 13 mg/dL (8-26) Creatinine 1.1 mg/dL (0.7-1.3) Estimated GFR (Cockcroft-Gault) 66.4 BUN/Creatinine Ratio 12 (6-20) Glucose Level 143 mg/dL (70-99) Calcium Level 9.0 mg/dL (8.5-10.1) Magnesium Level 1.5 mg/dL (1.8-2.4) Total Bilirubin 0.7 mg/dL (0.2-1.0) Aspartate Amino Transf (AST/SGOT) 25 U/L (15-37) Alanine Aminotransferase (ALT/SGPT) 48 U/L (16-63) Alkaline Phosphatase 78 U/L (46-116) Creatine Kinase 76 U/L (39-308) Creatine Kinase MB (Mass) 1.5 ng/mL (0.0-3.6) Creatine Kinase MB Relative Index 2.0 % (0-4) Troponin I Quantitative < 0.017 ng/mL (0.000-0.055) < 0.017 ng/mL (0.000-0.055) Total Protein 6.8 g/dL (6.4-8.2) Albumin 3.3 g/dL (3.4-5.0) Albumin/Globulin Ratio 0.9 (1.0-1.7) Lipase 70 U/L (73-393) Thyroid Stimulating Hormone (TSH) 1.444 uIU/mL (0.358-3.74) Laboratory Tests Test 05/04/21 09:26 05/04/21 11:30 White Blood Count 6.4 x10^3/uL (4.0-11.0) Red Blood Count 4.53 x10^6/uL (4.30-5.70) Hemoglobin 14.8 g/dL (13.0-17.5) Hematocrit 43.2 % (39.0-53.0) Mean Corpuscular Volume 95 fL (79-100) Mean Corpuscular Hemoglobin 33 pg (25-35) Mean Corpuscular Hemoglobin Concent 34 g/dL (31-37) Red Cell Distribution Width 13.7 % (11.5-14.5) Platelet Count 123 x10^3/uL (140-400) Neutrophils (%) (Auto) 55 % (31-73) Lymphocytes (%) (Auto) 35 % (24-48) Monocytes (%) (Auto) 5 % (0-9) Eosinophils (%) (Auto) 4 % (0-3) Basophils (%) (Auto) 1 % (0-3) Neutrophils # (Auto) 3.6 x10^3/uL (1.8-7.7) Lymphocytes # (Auto) 2.2 x10^3/uL (1.0-4.8) Monocytes # (Auto) 0.3 x10^3/uL (0.0-1.1) Eosinophils # (Auto) 0.2 x10^3/uL (0.0-0.7) Basophils # (Auto) 0.1 x10^3/uL (0.0-0.2) Sodium Level 142 mmol/L (136-145) Potassium Level 4.1 mmol/L (3.5-5.1) Chloride Level 107 mmol/L (98-107) Carbon Dioxide Level 27 mmol/L (21-32) Anion Gap 8 (6-14) Blood Urea Nitrogen 13 mg/dL (8-26) Creatinine 1.1 mg/dL (0.7-1.3) Estimated GFR (Cockcroft-Gault) 66.4 BUN/Creatinine Ratio 12 (6-20) Glucose Level 143 mg/dL (70-99) Calcium Level 9.0 mg/dL (8.5-10.1) Magnesium Level 1.5 mg/dL (1.8-2.4) Total Bilirubin 0.7 mg/dL (0.2-1.0) Aspartate Amino Transf (AST/SGOT) 25 U/L (15-37) Alanine Aminotransferase (ALT/SGPT) 48 U/L (16-63) Alkaline Phosphatase 78 U/L (46-116) Creatine Kinase 76 U/L (39-308) Creatine Kinase MB (Mass) 1.5 ng/mL (0.0-3.6) Creatine Kinase MB Relative Index 2.0 % (0-4) Troponin I Quantitative < 0.017 ng/mL (0.000-0.055) < 0.017 ng/mL (0.000-0.055) Total Protein 6.8 g/dL (6.4-8.2) Albumin 3.3 g/dL (3.4-5.0) Albumin/Globulin Ratio 0.9 (1.0-1.7) Lipase 70 U/L (73-393) Thyroid Stimulating Hormone (TSH) 1.444 uIU/mL (0.358-3.74) Allergies Allergies Coded Allergies Type Severity Reaction Last Updated Verified No Known Drug Allergies 07/03/15 No Disposition/Orders: D/C to Home Justicifation of Admission Dx: Justifications for Admission: Justification of Admission Dx: No Comments: chest discomfort YVONNE NOLAND MD May 04, 2021 17:22
[2021-05-04 19:30] VITALS: BP 136/76
--- NOTE | 2021-05-04 19:30 | NUR ---
Discharge instructions reviewed with patient by day nurse. Verbalized understanding. SL D/Cd in left hand. 2x2 secured with tape placed over site. Tele monitor placed at nurses desk. Ambulated off unit with at his side. A/O x 4. Steady gait. D/C instructions in hand.
[2021-05-04] MEDS ORDERED: DOXYCYCLINE HYCLATE 100 MG TABLET PO SCH (21:00)
[2021-05-04] MEDS ORDERED: APIXABAN 5 MG TABLET. PO SCH (21:00)
[2021-05-04] MEDS ORDERED: ATORVASTATIN CALCIUM 20 MG TABLET PO SCH (21:00)
[2021-05-05] MEDS ORDERED: ALLOPURINOL 300 MG TABLET. PO SCH (09:00)
== END 2021-05-04 19:30 | disposition home or self-care (01) ==
LOC: ER 09:02 → ED HOLD 09:36 → 2 NORTH 14:58
PROVIDERS: ADMIT Family Medicine; ATTEND Family Medicine
DX: R07.89 Other chest pain (principal); I26.99 Other pulmonary embolism without acute cor pulmonale; E78.2 Mixed hyperlipidemia; I48.91 Unspecified atrial fibrillation; K21.9 Gastro-esophageal reflux disease without esophagitis; R05 Cough; E66.01 Morbid (severe) obesity due to excess calories; E11.9 Type 2 diabetes mellitus without complications; E78.00 Pure hypercholesterolemia, unspecified; E83.42 Hypomagnesemia; I10 Essential (primary) hypertension; I20.8 Other forms of angina pectoris; M10.9 Gout, unspecified; M19.90 Unspecified osteoarthritis, unspecified site; E78.5 Hyperlipidemia, unspecified; J40 Bronchitis, not specified as acute or chronic; Z51.5 Encounter for palliative care; Z79.01 Long term (current) use of anticoagulants; Z79.899 Other long term (current) drug therapy; Z82.49 Family history of ischemic heart disease and other diseases of the circulatory system; Z86.711 Personal history of pulmonary embolism; Z98.890 Other specified postprocedural states; Z86.718 Personal history of other venous thrombosis and embolism; Z68.41 Body mass index [BMI] 40.0-44.9, adult
CPT/HCPCS: 36415; 71045; 80053; 82553; 83690; 83735; 84443; 84484; 85025; 93005; 96365; 96366; 99285; C8929; G0378; J3475; Q9956; G0379

== ENCOUNTER 2021-05-17 21:22 | Emergency (ER) | payer MEDICARE ==
[~2021-05-17] VITALS: Ht 170.2 cm; Wt 122.0 kg
[~2021-05-17 21:22] MED LIST changes: +ASCO100019 PO; +CALC-31 PO; +CHOL10004 PO; +CYCL10TA2 PO; +DOXY100C2 PO; +DULO60CA6 PO; +FOLI0.8T5 PO; +OMEG1CAP27 PO; +SILD20TA4 PO; +VITA1CAP7 PO; +VITA400C37 PO; +ZINC50TA39 PO
--- NOTE | 2021-05-17 22:08 | RAD ---
CT HEAD/BRAIN WO History: Reason: left side forearm and left 5th,4th fingers numbness / Spl. Instructions: / History : Comparison: None. Technique: Noncontrast CT imaging was performed of the head. Exposure: One or more of the following individualized dose reduction techniques were utilized for thi s examination: 1. Automated exposure control 2. Adjustment of the mA and/or kV according to patient size 3. Use of iterative reconstruction technique. Findings: No intracranial hemorrhage. No mass effect. No hydrocephalus. Mild brain parenchymal volume loss. Mild foci of decreased attenuation within the hemispheric white m atter, most often due to chronic microvascular ischemia. Imaged orbits are unremarkable. Imaged paranasal sinuses and mastoid air cells are clear. No acute ca lvarial fracture. Impression: 1. No acute intracranial abnormality. Electronically signed by: Cachorro Tavares DO (05/17/2021 10:05 PM) [facility]
--- NOTE | 2021-05-17 22:25 | PHYS DOC ---
Past Medical History Past Medical History: Bronchitis, High Cholesterol, Hypertension, Other Additional Past Medical Histor: blood clots in lung Past Surgical History: Other Additional Past Surgical Histo: L inguinal hernia, L ankle Smoking Status: Never Smoker Alcohol Use: Occasionally Drug Use: None General Adult EDM: Chief Complaint: NEURO SYMPTOMS/DEFICITS HPI: HPI: Patient is a 71 year old male who present to ER due to numbness, tingling sensation started from the back of left elbow to radiate down to the ulnar side of the left forearm to the fourth and fifth fingers around 7 PM today. Patient denies any headache, no blurred vision, no chest pain, no slow speech.. No other symptoms. Review of Systems: Review of Systems: Constitutional: Denies fever or chills. [] Eyes: Denies change in visual acuity. [] HENT: Denies nasal congestion or sore throat. [] Respiratory: Denies cough or shortness of breath. [] Cardiovascular: Denies chest pain or edema. [] GI: Denies abdominal pain, nausea, vomiting, bloody stools or diarrhea. [] : Denies dysuria. [] Musculoskeletal: Denies back pain or joint pain. [] Integument: Denies rash. [] Neurologic: Denies headache, focal weakness or sensory changes. Positive for tingling and numbness sensation from the left elbow to 4th and 5th fingers. Endocrine: Denies polyuria or polydipsia. [] Lymphatic: Denies swollen glands. [] Psychiatric: Denies depression or anxiety. [] Heart Score: C/O Chest Pain: N/A Risk Factors: Risk Factors: DM, Current or recent (<one month) smoker, HTN, HLP, family history of CAD, obesity. Risk Scores: Score 0 - 3: 2.5% MACE over next 6 weeks - Discharge Home Score 4 - 6: 20.3% MACE over next 6 weeks - Admit for Clinical Observation Score 7 - 10: 72.7% MACE over next 6 weeks - Early Invasive Strategies Allergies: Allergies: Allergies Coded Allergies Type Severity Reaction Last Updated Verified No Known Drug Allergies 07/03/15 No Physical Exam: PE: Constitutional: Well developed, well nourished, no acute distress, non-toxic appearance. [] HENT: Normocephalic, atraumatic, bilateral external ears normal, oropharynx moist, no oral exudates, nose normal. [] Eyes: PERRLA, EOMI, conjunctiva normal, no discharge. [] Neck: Normal range of motion, no tenderness, supple, no stridor. [] Cardiovascular:Heart rate regular rhythm, no murmur [] Lungs & Thorax: Bilateral breath sounds clear to auscultation [] Abdomen: Bowel sounds normal, soft, no tenderness, no masses, no pulsatile masses. [] Skin: Warm, dry, no erythema, no rash. [] Back: No tenderness, no CVA tenderness. [] Extremities: No tenderness, no cyanosis, no clubbing, ROM intact, no edema. [] Neurologic: Alert and oriented X 3, normal motor function, normal sensory function, no focal deficits noted. [] Psychologic: Affect normal, judgement normal, mood normal. [] Current Patient Data: Vital Signs: Vital Signs Date Time Temp Pulse Resp B/P (MAP) Pulse Ox O2 Delivery O2 Flow Rate FiO2 05/17/21 21:22 97.3 136/76 (96 97.3 EKG: EKG: EKG was done at 2239, heart rate of [address] segment elevation Radiology/Procedures: Radiology/Procedures: [][facility] [address] [place], [place] [id number] IMAGING REPORT Signed PATIENT: ILIA HERNANDEZ ACCOUNT: [id number] : 1950 LOCATION: ER AGE: 71 SEX: M EXAM STATUS: REG ER ORD. PHYSICIAN: CLARISA BENITEZ DO REASON: left side forearm and left 5th,4th fingers numbness PROCEDURE: CT HEAD WO CONTRAST CT HEAD/BRAIN WO History: Reason: left side forearm and left 5th,4th fingers numbness / Spl. Instructions: / History: Comparison: None. Technique: Noncontrast CT imaging was performed of the head. Exposure: One or more of the following individualized dose reduction techniques were utilized for this examination: 1. Automated exposure control 2. Adjustment of the mA and/or kV according to patient size 3. Use of iterative reconstruction technique. Findings: No intracranial hemorrhage. No mass effect. No hydrocephalus. Mild brain parenchymal volume loss. Mild foci of decreased attenuation within the hemispheric white matter, most often due to chronic microvascular ischemia. Imaged orbits are unremarkable. Imaged paranasal sinuses and mastoid air cells are clear. No acute calvarial fracture. Impression: 1. No acute intracranial abnormality. Electronically signed by: Cachorro Tavares DO (05/17/2021 10:05 PM) [facility] DICTATED and SIGNED BY: CACHORRO TAVARES DO DATE: 05/17/21 [id number] [facility] [address] [place] [address] IMAGING REPORT Signed PATIENT: ILIA HERNANDEZ ACCOUNT: [id number] : 1950 LOCATION: ER AGE: 71 SEX: M EXAM STATUS: REG ER ORD. PHYSICIAN: CLARISA BENITEZ DO REASON: left side lower neck pain, radiating to left hand, fingers 5th and 4th fing PROCEDURE: CERVICAL SPINE 2-3V C-spine AP and lateral views. HISTORY: Left-sided lower neck pain radiating to left hand AP and lateral views were taken of the cervical spine. There is mild carotid artery calcification on each side. C-spine is in normal alignment on the AP view. There is disc space narrowing at C5-6 on the lateral view. C7 is incompletely evaluated. There is spurring at the C5-6 level. Upper cervical spine is in normal alignment. An attempt was made to C6-C7 on the swimmers view which is not optimal, C7 is in grossly normal in alignment. IMPRESSION: 1. Degenerative spondylosis C5-6. 2. Limited evaluation the lower cervical spine on the lateral view. Electronically signed by: Dinh King MD (05/17/2021 11:17 PM) [facility] DICTATED and SIGNED BY: DINH KING MD DATE: 05/17/21 [id number] Course & Med Decision Making: Course & Med Decision Making Pertinent Labs and Imaging studies reviewed. (See chart for details) Patient is a 71-year-old male who present to ER due to pain and numbness sensation that started from the back of the left elbow along the ulnar side of the left forearm to the fifth and fourth fingers. His symptom is consistent with cubital tunnel syndrome. It is isolated symptom, he had no chest pain, no headache, no numbness or weakness anywhere else. Patient denies any slow speech, no trouble with with memory.. Patient was discharged home with instruction to follow-up with family physician for outpatient evaluation and referral to neurology or a hand surgeon for outpatient evaluation. Patient was amenable to plan of care Toribio Disclaimer: Toribio Disclaimer: This electronic medical record was generated, in whole or in part, using a voice recognition dictation system. Departure Departure Impression: Primary Impression: Cubital tunnel syndrome on left Additional Impression: Hypomagnesemia Disposition: HOME / SELF CARE / HOMELESS Condition: STABLE Referrals: Sridhar SALEEM MD (PCP) Follow up with your family physician for further outpatient evaluation and treatment this week. Patient Instructions: Cubital Tunnel Syndrome-SportsMed, Hypomagnesemia Additional Instructions: Thank you for visiting our Emergency Department. We appreciate you trusting us with your care. If any additional problems come up don't hesitate to return to visit us. Please follow up with your primary care provider so they can plan additional care if needed and know about the problem that you had. If symptoms worsen come back to the Emergency Department. Any concerning symptoms that start such as chest pain, shortness of air, weakness or numbness on one side of the body, running high fevers or any other concerning symptoms return to the ER. CLARISA BENITEZ DO May 17, 2021 22:25
--- NOTE | 2021-05-17 23:00 | EKG ---
[facility] [address] [place] [id number] Test Date: 2021-05-17 Test Time: 22:39:38 Pat Name: ILIA HERNANDEZ Department: Room: Gender: M Obiee [employer] Solution Architect: : 1950 Requested By: CLARISA BENITEZ Order Number: [id number] Reading MD: Jonathan Larios Measurements Intervals [place] Rate: 76 P: 39 CT: 188 QRS: 2 QRSD: 98 T: 39 QT: 388 QTc: 436 Interpretive Statements SINUS RHYTHM LOW LIMB LEAD VOLTAGE Electronically Signed On 05-19-2021 11:54:32 CDT by Jonathan Larios
[2021-05-17 23:03] LABS: BASO # 0.1 x10^3/uL (0.0-0.2); BASO % 1 % (0-3); EOS # 0.3 x10^3/uL (0.0-0.7); EOS % 3 % (0-3); HEMATOCRIT 43.8 % (39.0-53.0); HEMOGLOBIN 15.3 g/dL (13.0-17.5); LYMPH # 3.2 x10^3/uL (1.0-4.8); LYMPH % 31 % (24-48); MEAN CORPUSCULAR HEMOGLOBIN 33 pg (25-35); MEAN CORPUSCULAR HGB CONC 35 g/dL (31-37); MEAN CORPUSCULAR VOLUME 95 fL (79-100); MONO # 0.7 x10^3/uL (0.0-1.1); MONO % 6 % (0-9); NEUT % 59 % (31-73); PLATELET COUNT 145 x10^3/uL (140-400); RED BLOOD COUNT 4.63 x10^6/uL (4.30-5.70); RED CELL DISTRIBUTION WIDTH 13.8 % (11.5-14.5); WHITE BLOOD COUNT 10.2 x10^3/uL (4.0-11.0)
[2021-05-17 23:15] LABS: CALCIUM 8.7 mg/dL (8.5-10.1); CREATININE 1.1 mg/dL (0.7-1.3); GFR 66.4; POTASSIUM 4.3 mmol/L (3.5-5.1)
--- NOTE | 2021-05-17 23:20 | RAD ---
C-spine AP and lateral views. HISTORY: Left-sided lower neck pain radiating to left hand AP and lateral views were taken of the cervical spine. There is mild carotid artery calcification on each side. C-spine is in normal alignment on the AP view. There is disc space narrowing at C5-6 on th e lateral view. C7 is incompletely evaluated. There is spurring at the C5-6 level. Upper cervical spi ne is in normal alignment. An attempt was made to C6-C7 on the swimmers view which is not optimal, C7 is in grossly normal in alignment. IMPRESSION: 1. Degenerative spondylosis C5-6. 2. Limited evaluation the lower cervical spine on the lateral view. Electronically signed by: Dinh King MD (05/17/2021 11:17 PM) [facility]
[2021-05-17 23:21] LABS: ALBUMIN 3.4 g/dL (3.4-5.0); ALBUMIN/GLOBULIN RATIO 1.2 (1.0-1.7); MAGNESIUM 1.7 mg/dL (1.8-2.4); TOTAL BILIRUBIN 0.8 mg/dL (0.2-1.0); TOTAL PROTEIN 6.3 g/dL (6.4-8.2)
[2021-05-17] MEDS ORDERED: MAGNESIUM SULFATE 1GM 100 ML IV ONE (23:45)
[2021-05-18 00:43] VITALS: BP 120/71
== END 2021-05-18 00:55 | disposition home or self-care (01) ==
LOC: ER 21:22
DX: G56.22 Lesion of ulnar nerve, left upper limb (principal); E83.42 Hypomagnesemia; M47.812 Spondylosis without myelopathy or radiculopathy, cervical region; I10 Essential (primary) hypertension; E78.00 Pure hypercholesterolemia, unspecified
CPT/HCPCS: 36415; 70450; 72040; 80053; 83735; 84484; 85025; 93005; 96365; 99285; J3475